=== PATIENT | male | born 1945 | race Caucasian/White ===

== ENCOUNTER → 2016-09-21 | Outpatient (REF) | payer MEDICARE, OTHER ==
[2016-09-21 11:56] LABS: MEAN CORPUSCULAR HEMOGLOBIN 31.7 pg (27.0-33.0); MEAN CORPUSCULAR HGB CONC 33.6 g/dl (32.0-36.5); MEAN CORPUSCULAR VOLUME 94.4 fl (80.0-96.0); WHITE BLOOD COUNT 5.9 K/mm3 (4.0-10.0)
[2016-09-21 13:08] LABS: ALBUMIN/GLOBULIN RATIO 1.25 (1.00-1.93); BILIRUBIN,TOTAL 0.6 MG/DL (0.2-1.0); CALCIUM LEVEL 8.7 MG/DL (8.8-10.2); CREATININE FOR GFR 1.31 MG/DL (0.70-1.30); GLOMERULAR FILTRATION RATE 57.6 (>42); POTASSIUM SERUM 4.7 MEQ/L (3.5-5.1); TOTAL PROTEIN 7.2 GM/DL (6.4-8.2)
== END ==
LOC: M SFHCPLAZ 09:34
PROVIDERS: ATTEND Internal Medicine
DX: Z51.81 Encounter for therapeutic drug level monitoring (principal); Z79.899 Other long term (current) drug therapy; E78.00 Pure hypercholesterolemia, unspecified; R73.01 Impaired fasting glucose

== ENCOUNTER 2017-01-30 10:46 | Outpatient (RCR) | payer MEDICARE, OTHER | END 2017-02-02 | LOC: M CR 10:46 | PROVIDERS: ATTEND Internal Medicine Cardiovascular Disease | DX: Z51.89 Encounter for other specified aftercare (principal); I25.10 Atherosclerotic heart disease of native coronary artery without angina pectoris; Z98.61 Coronary angioplasty status ==

== ENCOUNTER → 2017-09-04 | Outpatient (REF) | payer MEDICARE, OTHER ==
[2017-09-04 12:18] LABS: HEMATOCRIT 44.9 % (42.0-52.0); HEMOGLOBIN 14.8 g/dl (13.5-17.5); MEAN CORPUSCULAR HEMOGLOBIN 30.9 pg (27.0-33.0); MEAN CORPUSCULAR VOLUME 93.7 fl (80.0-96.0); PLATELET COUNT, AUTOMATED 201 10^3/uL (150-450); RED BLOOD COUNT 4.79 10^6/uL (4.30-6.10); RED CELL DISTRIBUTION WIDTH 12.9 % (11.5-14.5); WHITE BLOOD COUNT 6.6 10^3/uL (4.0-10.0)
[2017-09-04 12:52] LABS: ALBUMIN/GLOBULIN RATIO 1.21 (1.00-1.93); ALKALINE PHOSPHATASE 91 U/L (45-117); ALT/SGPT 34 U/L (12-78); ANION GAP 7 MEQ/L (8-16); AST/SGOT 16 U/L (7-37); BILIRUBIN,TOTAL 0.5 MG/DL (0.2-1.0); BLOOD UREA NITROGEN 23 MG/DL (7-18); CALCIUM LEVEL 8.9 MG/DL (8.8-10.2); CARBON DIOXIDE LEVEL 27 MEQ/L (21-32); CHLORIDE LEVEL 107 MEQ/L (98-107); CHOLESTEROL LEVEL 148 MG/DL (<200); CHOLESTEROL RISK RATIO 2.596 (<5); CREATININE FOR GFR 1.29 MG/DL (0.70-1.30); GLOMERULAR FILTRATION RATE 58.5 (>42); GLUCOSE, FASTING 105 MG/DL (70-100); HDL CHOLESTEROL 57 MG/DL (>40); LDL CHOLESTEROL 63.2 MG/DL (<100); MAGNESIUM LEVEL 2.4 MG/DL (1.8-2.4); NON-HDL-C 91 MG/DL; POTASSIUM SERUM 5.1 MEQ/L (3.5-5.1); SODIUM LEVEL 141 MEQ/L (136-145); TOTAL PROTEIN 7.3 GM/DL (6.4-8.2); TRIGLYCERIDES LEVEL 139 MG/DL (<150)
[2017-09-04 14:36] LABS: ESTIMATED AVERAGE GLUCOSE 111 MG/DL (60-110); HEMOGLOBIN A1c 5.5 %
== END ==
LOC: M SFHCPLAZ 07:52
DX: R73.01 Impaired fasting glucose (principal); K21.9 Gastro-esophageal reflux disease without esophagitis; I10 Essential (primary) hypertension; E78.00 Pure hypercholesterolemia, unspecified
CPT/HCPCS: 83735

== ENCOUNTER → 2018-09-12 | Outpatient (CLI) | payer MEDICARE, OTHER ==
[2018-09-12 12:53] LABS: HEMATOCRIT 46.3 % (42.0-52.0); HEMOGLOBIN 15.3 g/dl (13.5-17.5); MEAN CORPUSCULAR HEMOGLOBIN 31.7 pg (27.0-33.0); MEAN CORPUSCULAR VOLUME 96.1 fl (80.0-96.0); PLATELET COUNT, AUTOMATED 200 10^3/uL (150-450); RED BLOOD COUNT 4.82 10^6/uL (4.30-6.10); WHITE BLOOD COUNT 7.9 10^3/uL (4.0-10.0)
[2018-09-12 13:14] LABS: ALBUMIN 3.8 GM/DL (3.2-5.2); ALT/SGPT 34 U/L (12-78); BILIRUBIN,TOTAL 0.5 MG/DL (0.2-1.0); BLOOD UREA NITROGEN 24 MG/DL (7-18); CALCIUM LEVEL 9.1 MG/DL (8.8-10.2); CARBON DIOXIDE LEVEL 30 MEQ/L (21-32); CHLORIDE LEVEL 103 MEQ/L (98-107); CREATININE FOR GFR 1.23 MG/DL (0.70-1.30); GLOMERULAR FILTRATION RATE > 60.0 (>42); GLUCOSE, FASTING 119 MG/DL (70-100); MAGNESIUM LEVEL 2.4 MG/DL (1.8-2.4); POTASSIUM SERUM 4.8 MEQ/L (3.5-5.1); SODIUM LEVEL 136 MEQ/L (136-145); TOTAL PROTEIN 7.4 GM/DL (6.4-8.2)
[2018-09-12 14:00] LABS: HIV 1&2 SCREEN CENTAUR NEGATIVE (NEGATIVE)
[2018-09-12 14:35] LABS: HEPATITIS C VIRUS ABY INDEX < 0.0 INDEX (<0.8)
== END ==
LOC: M WUC 08:04
PROVIDERS: ATTEND Internal Medicine
DX: Z11.4 Encounter for screening for human immunodeficiency virus [HIV] (principal); Z11.59 Encounter for screening for other viral diseases; I25.10 Atherosclerotic heart disease of native coronary artery without angina pectoris; I10 Essential (primary) hypertension; R73.01 Impaired fasting glucose

== ENCOUNTER → 2018-12-29 | Outpatient (CLI) | payer MEDICARE, OTHER ==
[~2018-12-29] MED LIST: AMLO25TA PO; ASPI-161 PO; ASPI81CH33 PO; BRIL90TA PO; CRES20TA2 PO; ESOM1CAP5 PO; FINA5TAB2 PO; ISOS20TA PO; ISOS30TA4 PO; L-AR1000 PO; METO1TAB7 PO; METO50TA7 PO; NITR0.4S14 SL; RAMI1CAP24 PO; RAMI1CAP26 PO; RANO500T7 PO; VITA-122 PO; VITMTA PO
--- NOTE | 2018-12-30 12:21 | REP ---
Bilateral lower extremity arterial Doppler ultrasound: Right lower extremity: The brachial peak flow velocity: 100 for a millimeters of mercury. Dorsalis pedis peak flow velocity: Not present. JUNIOR ELECTRICAL ENGINEER peak velocity: 110 mmHg. ISADORA: 0.8 Peak Systolic Phasicity Velocity STATION MECHANIC HELPER 83.2 biphasic Profunda 245.0 biphasic SFA prox 223.0 biphasic SFA mid 65.3 biphasic SFA dist 59.3 by three Pop 39.2. monophasic JANA prox 18.4 monophasic Tib/P tr 24.8 monophasic JUNIOR ELECTRICAL ENGINEER pr 39.7 monophasic JUNIOR ELECTRICAL ENGINEER dst 32.1 biphasic JANA dst 14.8 monophasic Left lower extremity: Brachial peak flow velocity: 130 mmHg. Dorsalis pedis: Reversal of flow JUNIOR ELECTRICAL ENGINEER: 112 mmHg. ISADORA: 0.9. There is stenosis of the right proximal superficial femoral artery and the right profunda femoral artery. There is monophasic flow from the right popliteal artery to the right ankle. On the left. There is flow reversal in the anterior tibial artery and dorsalis penis. There is moderate atheromatous plaque bilaterally. Electronically Signed by Hong Jaimes MD 12/29/2018 12:56 P
== END ==
LOC: M RAD 10:56
PROVIDERS: ATTEND Surgery Vascular Surgery
DX: I70.213 Atherosclerosis of native arteries of extremities with intermittent claudication, bilateral legs (principal)

== ENCOUNTER → 2019-01-07 | Outpatient (CLI) | payer MEDICARE, OTHER ==
[2019-01-07 11:53] LABS: HEMATOCRIT 44.2 % (42.0-52.0); HEMOGLOBIN 14.9 g/dl (13.5-17.5); MEAN CORPUSCULAR HGB CONC 33.7 g/dl (32.0-36.5); MEAN CORPUSCULAR VOLUME 94.8 fl (80.0-96.0); PLATELET COUNT, AUTOMATED 201 10^3/uL (150-450); RED BLOOD COUNT 4.66 10^6/uL (4.30-6.10); WHITE BLOOD COUNT 6.1 10^3/uL (4.0-10.0)
[2019-01-07 12:22] LABS: CALCIUM LEVEL 9.4 MG/DL (8.8-10.2); CREATININE FOR GFR 1.29 MG/DL (0.70-1.30); GLOMERULAR FILTRATION RATE 58.3 (>42)
== END ==
LOC: M LAB 11:26
PROVIDERS: ATTEND Physician Assistant
DX: I70.213 Atherosclerosis of native arteries of extremities with intermittent claudication, bilateral legs (principal)

== ENCOUNTER 2019-01-14 20:55 | Observation (INO) | payer MEDICARE, OTHER ==
[~2019-01-14] VITALS: Ht 167.6 cm; Wt 67.5 kg
[2019-01-14] MEDS ORDERED: AMLO25TA PO (21:23)
[2019-01-14] MEDS ORDERED: RAMI1CAP26 PO (21:23)
[2019-01-14] MEDS ORDERED: ASPI81CH33 PO (21:23)
[2019-01-14] MEDS ORDERED: BRIL90TA PO (21:23)
[2019-01-14] MEDS ORDERED: FINA5TAB2 PO (21:23)
[2019-01-14] MEDS ORDERED: ISOS20TA PO (21:23)
[2019-01-14] MEDS ORDERED: NITR0.4S14 SL (21:23)
[2019-01-14] MEDS ORDERED: ESOM1CAP5 PO (21:23)
[2019-01-14] MEDS ORDERED: METO1TAB7 PO (21:23)
[2019-01-14] MEDS ORDERED: RANO500T7 PO (21:23)
[2019-01-14] MEDS ORDERED: CRES20TA2 PO (21:23)
[2019-01-14 21:54] LABS: BASO % 0.6 % (0.0-1.0); EOS # 0.1 10^3/uL (0.0-0.5); EOS % 1.3 % (0.0-3.0); HEMATOCRIT 43.9 % (42.0-52.0); HEMOGLOBIN 15.1 g/dl (13.5-17.5); LYMPH # 1.4 10^3/uL (1.5-5.0); LYMPH % 19.2 % (24.0-44.0); MEAN CORPUSCULAR HEMOGLOBIN 31.7 pg (27.0-33.0); MEAN CORPUSCULAR HGB CONC 34.4 g/dl (32.0-36.5); MEAN CORPUSCULAR VOLUME 92.2 fl (80.0-96.0); MONO # 0.8 10^3/uL (0.0-0.8); MONO % 10.9 % (0.0-5.0); NEUTROPHILS # 4.8 10^3/uL (1.5-8.5); NEUTROPHILS % 67.7 % (36.0-66.0); PLATELET COUNT, AUTOMATED 202 10^3/uL (150-450); RED BLOOD COUNT 4.76 10^6/uL (4.30-6.10); WHITE BLOOD COUNT 7.1 10^3/uL (4.0-10.0)
[2019-01-14 22:05] LABS: INR 1.03; PROTHROMBIN TIME 13.2 SECONDS (11.8-14.0)
[2019-01-14 22:06] LABS: PARTIAL THROMBOPLASTIN TIME 27.7 SECONDS (25.0-38.4)
[2019-01-14] MEDS ORDERED: ASPIRIN 81 MG CHEW TABLET PO ONE (22:15)
[2019-01-14 22:28] LABS: ALBUMIN 3.8 GM/DL (3.2-5.2); ALT/SGPT 33 U/L (12-78); BILIRUBIN,DIRECT 0.2 MG/DL (0.0-0.2); BILIRUBIN,TOTAL 0.4 MG/DL (0.2-1.0); BLOOD UREA NITROGEN 24 MG/DL (7-18); CALCIUM LEVEL 9.4 MG/DL (8.8-10.2); CARBON DIOXIDE LEVEL 28 MEQ/L (21-32); CHLORIDE LEVEL 101 MEQ/L (98-107); CK-MB VALUE MASS < 1.0 NG/ML (<3.6); CPK CREATINE PHOSPHOKINASE 49 U/L (39-308); FREE T4 0.94 NG/DL (0.76-1.46); GLUCOSE, FASTING 143 MG/DL (70-100); LIPASE 114 U/L (73-393); MB/CK RELATIVE INDEX 2.04 (< OR =4); SODIUM LEVEL 135 MEQ/L (136-145); TOTAL PROTEIN 7.1 GM/DL (6.4-8.2); TROPONIN I < 0.02 NG/ML (< 0.10)
[2019-01-14] MEDS ORDERED: ASPI-161 PO (23:16)
[2019-01-14] MEDS ORDERED: RAMI1CAP24 PO (23:16)
[2019-01-14] MEDS ORDERED: METO50TA7 PO (23:16)
[2019-01-14] MEDS ORDERED: ISOS30TA4 PO ×2 (23:16)
[2019-01-14] MEDS ORDERED: L-AR1000 PO (23:20)
[2019-01-14] MEDS ORDERED: VITA-122 PO (23:20)
[2019-01-14] MEDS ORDERED: VITMTA PO (23:20)
[2019-01-15] MEDS ORDERED: MOM 30ML SUSPENSION UDC PO PRN
[2019-01-15] MEDS ORDERED: ACETAMINOPHEN TAB 650MG DOSE (2X325MG) PO PRN
[2019-01-15] MEDS ORDERED: MAALOX 30 ML SUSP *UDC PO PRN
[2019-01-15] MEDS: DOCUSATE SODIUM 100 MG CAP PO SCH ×2 (00:24→08:23)
[2019-01-15 00:45] LABS: HEMATOCRIT 41.2 % (42.0-52.0); HEMOGLOBIN 14.4 g/dl (13.5-17.5); MEAN CORPUSCULAR VOLUME 91.6 fl (80.0-96.0); PLATELET COUNT, AUTOMATED 195 10^3/uL (150-450)
[2019-01-15 00:57] LABS: INR 1.03; PROTHROMBIN TIME 13.2 SECONDS (11.8-14.0)
[2019-01-15 01:00] LABS: D-DIMER QUANT 420.32 ng/ml (<500)
[2019-01-15 01:07] LABS: ALBUMIN 3.6 GM/DL (3.2-5.2); BILIRUBIN,TOTAL 0.5 MG/DL (0.2-1.0); CALCIUM LEVEL 8.8 MG/DL (8.8-10.2); CREATININE FOR GFR 1.34 MG/DL (0.70-1.30); GLOMERULAR FILTRATION RATE 55.8 (>42); POTASSIUM SERUM 4.1 MEQ/L (3.5-5.1); TOTAL PROTEIN 6.7 GM/DL (6.4-8.2)
[2019-01-15 05:03] LABS: BASO % 0.5 % (0.0-1.0); EOS # 0.1 10^3/uL (0.0-0.5); EOS % 1.5 % (0.0-3.0); HEMATOCRIT 43.6 % (42.0-52.0); LYMPH # 1.6 10^3/uL (1.5-5.0); LYMPH % 19.9 % (24.0-44.0); MEAN CORPUSCULAR HEMOGLOBIN 31.6 pg (27.0-33.0); MEAN CORPUSCULAR HGB CONC 34.4 g/dl (32.0-36.5); MONO # 0.8 10^3/uL (0.0-0.8); MONO % 10.1 % (0.0-5.0); NEUTROPHILS # 5.3 10^3/uL (1.5-8.5); NEUTROPHILS % 67.6 % (36.0-66.0); PLATELET COUNT, AUTOMATED 207 10^3/uL (150-450); RED BLOOD COUNT 4.74 10^6/uL (4.30-6.10); WHITE BLOOD COUNT 7.8 10^3/uL (4.0-10.0)
[2019-01-15 05:42] LABS: ALBUMIN 3.7 GM/DL (3.2-5.2); ALT/SGPT 33 U/L (12-78); BILIRUBIN,TOTAL 0.5 MG/DL (0.2-1.0); BLOOD UREA NITROGEN 21 MG/DL (7-18); CARBON DIOXIDE LEVEL 25 MEQ/L (21-32); CHLORIDE LEVEL 104 MEQ/L (98-107); CHOLESTEROL LEVEL 137 MG/DL (<200); CREATININE FOR GFR 1.25 MG/DL (0.70-1.30); GLOMERULAR FILTRATION RATE > 60.0 (>42); GLUCOSE, FASTING 98 MG/DL (70-100); HDL CHOLESTEROL 55 MG/DL (>40); LDL CHOLESTEROL 53 MG/DL (<100); MAGNESIUM LEVEL 2.3 MG/DL (1.8-2.4); NON-HDL-C 82 MG/DL; POTASSIUM SERUM 3.7 MEQ/L (3.5-5.1); SODIUM LEVEL 137 MEQ/L (136-145); TOTAL PROTEIN 7.3 GM/DL (6.4-8.2); TRIGLYCERIDES LEVEL 143 MG/DL (<150); TROPONIN I < 0.02 NG/ML (< 0.10)
[2019-01-15 08:00] VITALS: BP 130/62
--- NOTE | 2019-01-15 08:15 | ECGEPIP ---
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
--- NOTE | 2019-01-15 08:19 | ECGEPIP ---
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
[2019-01-15] MEDS ORDERED: NITROGLYCERIN 0.4 MG SUBL TABLET SL PRN (08:45)
--- NOTE | 2019-01-15 08:59 | HPEPDOC ---
General Date of Admission Jan 14, 2019 at 20:56 Date of Service: Jan 14, 2019 Primary Care Physician: Gino Torres Attending Physician: UMU MILLS DO Chief Complaint The patient is a 73-year-old male admitted with a reason for visit of Angina Pectoris. Source: Patient, RN notes reviewed, EMS notes reviewed Exam Limitations: No limitations Timing/Duration: 1-3 hours Associated Symptoms: Chest Pain, Diaphoresis, Nausea History of Present Illness 73 year-old elderly male presents to [facility] ED by way of EMS with his complaining of nausea, diaphoresis accompanied with chest pain which stated this evening. He reports belching, taking a Nitroglycerin tablet Sublingual which both helped to relieve some of his chest pressure discomfort and pain. How ever, the chest pressure increase as well as the pain reports Mr. Velasquez who in turn informed his that he needed to go the the nearest emergency room. He denies vomiting, having diarrhea, losing consciousness, changing in vision during his chest pain episode and he denies those symptoms now. 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 Due to patients co-morbidities, current complaints he will be admitted to Observation unit for ongoing evaluation. Home Medications Scheduled Amlodipine Besylate (Amlodipine Besylate) 2.5 Mg Tablet, 2.5 MG PO QPM, (Reported) AFTER DINNER Arginine HCl (l-Arginine) 1,000 Mg Tablet, 1,000 MG PO DAILY, (Reported) Aspirin (Aspirin EC) 81 Mg Tablet.dr, 81 MG PO DAILY, (Reported) Cholecalciferol (Vitamin D3) (Vitamin D3) 1,000 Unit Tablet, 1,000 UNIT PO DAILY, (Reported) Esomeprazole Magnesium (Esomeprazole Magnesium) 40 Mg Capsule.dr, 40 MG PO QPM, (Reported) AFTER DINNER Finasteride (Finasteride) 5 Mg Tablet, 5 MG PO QPM, (Reported) AFTER DINNER Isosorbide Mononitrate (Isosorbide Mononitrate ER) 30 Mg Tab.er.24h, 45 MG PO DAILY, (Reported) Isosorbide Mononitrate (Isosorbide Mononitrate ER) 30 Mg Tab.er.24h, 30 MG PO QPM, (Reported) AFTER DINNER Metoprolol Tartrate (Metoprolol Tartrate) 50 Mg Tablet, 50 MG PO BID, (Reported) Multivitamins (Thera M Plus Tablet) 1 Each Tablet, 1 TAB PO DAILY, (Reported) Ramipril (Ramipril) 5 Mg Capsule, 5 MG PO DAILY, (Reported) Ranolazine (Ranexa) 500 Mg Tab.er.12h, 500 MG PO BID, (Reported) Rosuvastatin Calcium (Crestor) 20 Mg Tablet, 20 MG PO QPM, (Reported) AFTER DINNER Ticagrelor Base (Brilinta) 90 Mg Tablet, 90 MG PO BID, (Reported) Scheduled PRN Nitroglycerin (Nitroglycerin) 0.4 Mg Tab.subl, 0.4 MG SL NITRO PRN for CHEST PAIN, (Reported) Allergies Coded Allergies: No Known Allergies (Verified , 09/17/04) Past Medical History Medical History Myocardial Infarction, CAD with CABG x2 with stents x15, Angina Pectoris, Dyslipidemia, Essential Hypertension, GERD Surgical History CABGx2 with 19 stents ( 5 stents placed 09/21), Partial Lumbar discectomy Family History Significant Family History: No pertinent family hx Social History * Smoker: former Smoker Alcohol: occationally Drugs: denies Recent Travel/Sick Contacts: Denies: Recent travel, Recent sick contacts Psychosocial History: No pertinent psych hx A-FIB/CHADSVASC A-FIB History Current/History of A-Fib/PAF?: No Review of Systems Constitutional: Denies: Chills, Fever, Malaise, Night Sweats, Weakness, Fatigue, Weight Loss, Lethargy, Other Eyes: Reports: Pain (chest only with movement) ENT: Denies: Head Aches, Ear Pain, Dysphagia, Sinus Congestion, Post Nasal Drip, Sore Throat, Epistaxis, Other Symptoms Skin: Denies: Rash, Lesions, Jaundice, Bruising, Itching, Dry, Breakdown, Nail Changes, Other Pulmonary: Denies: Dyspnea, Cough, Pleuritic Chest Pain, Other Symptoms Cardiovascular: Reports: Chest Pain (only with exertion like walking) Gastrointestinal: Denies: Nausea, Vomiting, Abdominal Pain, Diarrhea, Constipation, Melena, Hematochezia, Other Symptoms Genitourinary: Denies: Dysuria, Frequency, Incontinence, Hematuria, Retention, Other Symptoms Hematologic: Denies: Bruising, Bleeding Excessively, Petecchia, Purpura, Enlarged Lymph Nodes, Other Hematologic Endocrine: Denies: Polydipsia, Polyphagia, Polyuria, Heat Intolerance, Cold Intolerance, Other Endocrine Sx Musculoskeletal: Reports: Back Pain (comes and goes) Neurological: Denies: Weakness, Numbness, Incoordination, Change in speech, Confusion, Seizures, Other Symptoms Psych: Reports: Mood Normal Physical Examination General Exam: Positive: Alert, Cooperative, No Acute Distress Eye Exam: Positive: PERRLA, Conjunctiva & lids normal, Sclera icteric ENT Exam: Positive: Atraumatic, Mucous membr. moist/pink, Pharynx Normal, Tongue Midline, Nares Patent, Ext Auditory Canal Nml Neck Exam: Positive: Supple, +2 carotid pulse wo bruit, Lymphadenopathy Chest Exam: Positive: Clear to auscultation, Normal air movement Heart Exam: Positive: Bradycardic, Normal S1, Normal S2 Telemetry: Positive: No significant arrhythmia, Bradycardia Abdomen Exam: Positive: Normal bowel sounds, Soft Extremity Exam: Positive: Normal pulses Skin Exam: Positive: Nl turgor and temperature Neuro Exam: Positive: Normal Speech, Cranial Nerves 3-12 NL Psych Exam: Positive: Mental status NL, Mood NL Other physical findings EKG: Sinus Bradycardia with incomplete Right Bundle Branch Block. Vent rate 50, WI interval 163, QRS duration 99, QT/QTc 468/442, PRT axis 35 10 78. Vital Signs Vital Signs Date Time Temp Pulse Resp B/P (MAP) Pulse Ox O2 Delivery O2 Flow Rate FiO2 01/14/19 23:15 51 18 139/66 (90) 96 Room Air 01/14/19 20:56 97.6 Laboratory Data Labs 24H Laboratory Tests 2 01/14/19 21:43: Immature Granulocyte % (Auto) 0.3, White Blood Count 7.1, Red Blood Count 4.76, Hemoglobin 15.1, Hematocrit 43.9, Mean Corpuscular Volume 92.2, Mean Corpuscular Hemoglobin 31.7, Mean Corpuscular Hemoglobin Concent 34.4, Red Cell Distribution Width 12.8, Platelet Count 202, Neutrophils (%) (Auto) 67.7H, Lymphocytes (%) (Auto) 19.2L, Monocytes (%) (Auto) 10.9H, Eosinophils (%) (Auto) 1.3, Basophils (%) (Auto) 0.6, Neutrophils # (Auto) 4.8, Lymphocytes # (Auto) 1.4L, Monocytes # (Auto) 0.8, Eosinophils # (Auto) 0.1, Basophils # (Auto) 0.0, Nucleated Red Blood Cells % (auto) 0.0, Prothrombin Time 13.2, Prothromb Time International Ratio 1.03, Activated Partial Thromboplast Time 27.7, Anion Gap 6L, Glomerular Filtration Rate 53.0, Calcium Level 9.4, Aspartate Amino Transf (AST/SGOT) 15, Alanine Aminotransferase (ALT/SGPT) 33, Alkaline Phosphatase 84, Total Bilirubin 0.4, Direct Bilirubin 0.2, Total Creatine Kinase 49, Creatine Kinase MB < 1.0, Creatine Kinase MB Relative Index 2.04, Troponin I < 0.02, Total Protein 7.1, Albumin 3.8, Albumin/Globulin Ratio 1.15, Lipase 114, Thyroid Stimulating Hormone (TSH) 3.020, Free Thyroxine 0.94 CBC/BMP Laboratory Tests 01/14/19 21:43 Red Blood Count 4.76, Mean Corpuscular Volume 92.2, Mean Corpuscular Hemoglobin 31.7, Mean Corpuscular Hemoglobin Concent 34.4, Red Cell Distribution Width 12.8, Neutrophils (%) (Auto) 67.7 H, Lymphocytes (%) (Auto) 19.2 L, Monocytes (%) (Auto) 10.9 H, Eosinophils (%) (Auto) 1.3, Basophils (%) (Auto) 0.6, Neutrophils # (Auto) 4.8, Lymphocytes # (Auto) 1.4 L, Monocytes # (Auto) 0.8, Eosinophils # (Auto) 0.1, Basophils # (Auto) 0.0 Assessment/Plan 73 year-old elderly male presents to [facility] ED by way of EMS with his complaining of nausea, diaphoresis accompanied with chest pain which stated this evening. He reports belching, taking a Nitroglycerin tablet Sublingual which both helped to relieve some of his chest pressure discomfort and pain. Nausea/Sweating: Differential DX: Angina Pectoris: EKG, remote continuos pulse oximetry, Chest AP/Lat, Lactic Acid, Mag, Phos. 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 CK-MB Trop with trending Trops Continue Brilinta GERD-Chronic Hold Esomeprazole 40 mg daily until discharged Start Protonix DR 40 mg daily while in hospital setting Chronic Back Pain-Chronic Lidocaine Patch Luis F Hartmann rub sparingly Prognosis: Fair DVT Prophylaxis: Brilinta, Bilateral SCDs Discharge: Pending Problems (1) Angina pectoris Permanent Comment: Last Edited By: GEO Arnold on Jan 15, 2019 08:24 Status: Acute Response to Treatment: Worse Discussed With: Patient Problem Specific Plan: Consult Specialist, Monitor Clinically, Repeat Labs Plan / VTE VTE Prophylaxis Ordered?: Yes VTE Exclusion Mechanical Proph: Adria Lower Ex DVT VTE Exclusion Pharmacological: Other (Patient on Brilinta bid) Plan IVF: Initiate Diet: Advance Activity: Advance Diagnostics: Check Labs, Repeat Labs in AM, EKG Advanced Directives: Health Care Proxy (HCP) (Mrs. Nila Velasquez-) JAVIER TOMLINSON Jan 15, 2019 00:51
[2019-01-15] MEDS ORDERED: VITAMIN D 1,000 INTERNATIONAL UNITS TABLET PO SCH (09:00)
[2019-01-15] MEDS ORDERED: MULTIVITAMINS/MINERALS THERAP 1 TAB PO SCH (09:00)
[2019-01-15] MEDS ORDERED: METOPROLOL TART 50 MG TAB PO SCH (09:00)
[2019-01-15] MEDS ORDERED: RANOLAZINE 500 MG ER TAB PO SCH (09:00)
[2019-01-15] MEDS ORDERED: PANTOPRAZOLE 40MG TAB (PROTONIX) PO SCH (09:00)
[2019-01-15] MEDS ORDERED: ASPIRIN 81 MG CHEW TABLET PO SCH (09:00)
[2019-01-15] MEDS ORDERED: ISOSORBIDE MON. (IMDUR) 30 MG XR TAB PO SCH ×2 (09:00→21:00)
[2019-01-15] MEDS ORDERED: ASPIRIN 81 MG ENTERIC TAB PO SCH (09:00)
[2019-01-15] MEDS ORDERED: NS 1,000 ML IV SCH (09:00)
[2019-01-15] MEDS ORDERED: RAMIPRIL 5 MG CAP PO SCH (09:00)
[2019-01-15] MEDS ORDERED: TICAGRELOR 90 MG TABLET (BRILINTA) PO SCH (09:00)
[2019-01-15 09:15] LABS: BASO % 0.6 % (0.0-1.0); EOS # 0.1 10^3/uL (0.0-0.5); EOS % 1.2 % (0.0-3.0); HEMATOCRIT 42.6 % (42.0-52.0); HEMOGLOBIN 14.7 g/dl (13.5-17.5); LYMPH # 1.1 10^3/uL (1.5-5.0); LYMPH % 16.5 % (24.0-44.0); MEAN CORPUSCULAR HEMOGLOBIN 31.7 pg (27.0-33.0); MEAN CORPUSCULAR HGB CONC 34.5 g/dl (32.0-36.5); MONO # 0.6 10^3/uL (0.0-0.8); MONO % 8.5 % (0.0-5.0); NEUTROPHILS # 5.1 10^3/uL (1.5-8.5); NEUTROPHILS % 72.8 % (36.0-66.0); PLATELET COUNT, AUTOMATED 204 10^3/uL (150-450); RED BLOOD COUNT 4.63 10^6/uL (4.30-6.10); WHITE BLOOD COUNT 6.9 10^3/uL (4.0-10.0)
[2019-01-15] MEDS ORDERED: PILL CUTTER 1 EACH XX PRN (09:15)
--- NOTE | 2019-01-15 09:23 | REP ---
CHEST X-RAY: Two views. HISTORY: Chest pain. COMPARISON CHEST X-RAY: May 01, 2006. FINDINGS: The patient is status post prior median sternotomy and there are multiple coronary stents visible overlying the heart. Lungs are well inflated and clear. Heart size is normal. Pulmonary vasculature is not increased. Pleural angles are sharp. The findings are unchanged. IMPRESSION: No active disease status post median sternotomy and multiple coronary artery stent placements. Electronically Signed by Yovani Ward MD 01/15/2019 12:50 P
[2019-01-15 09:36] VITALS: BP 130/62
[2019-01-15 09:48] LABS: ALBUMIN 3.7 GM/DL (3.2-5.2); ALT/SGPT 32 U/L (12-78); BILIRUBIN,TOTAL 0.6 MG/DL (0.2-1.0); BLOOD UREA NITROGEN 21 MG/DL (7-18); CALCIUM LEVEL 8.8 MG/DL (8.8-10.2); CARBON DIOXIDE LEVEL 25 MEQ/L (21-32); CHLORIDE LEVEL 105 MEQ/L (98-107); CHOLESTEROL LEVEL 141 MG/DL (<200); CREATININE FOR GFR 1.22 MG/DL (0.70-1.30); GLOMERULAR FILTRATION RATE > 60.0 (>42); GLUCOSE, FASTING 148 MG/DL (70-100); HDL CHOLESTEROL 60 MG/DL (>40); LDL CHOLESTEROL 55 MG/DL (<100); MAGNESIUM LEVEL 2.2 MG/DL (1.8-2.4); NON-HDL-C 81 MG/DL; NT-PRO BNP 156 PG/ML (<125); PHOSPHORUS LEVEL 3.1 MG/DL (2.5-4.9); SODIUM LEVEL 138 MEQ/L (136-145); TOTAL PROTEIN 6.8 GM/DL (6.4-8.2); TRIGLYCERIDES LEVEL 132 MG/DL (<150)
[2019-01-15 12:00] VITALS: BP 110/57
[2019-01-15 16:00] VITALS: BP 111/58
[2019-01-15] MEDS ORDERED: ROSUVASTATIN 10 MG TAB (CRESTOR) PO SCH (21:00)
[2019-01-15] MEDS ORDERED: FINASTERIDE 5 MG TAB PO SCH (21:00)
== END 2019-01-15 17:04 | disposition home or self-care (01) ==
LOC: M ED 20:55 → M ED INP 20:56 → M PCU 01-15 04:15
PROVIDERS: ADMIT Internal Medicine; ATTEND Internal Medicine
DX: I20.9 Angina pectoris, unspecified (principal); I50.9 Heart failure, unspecified; I25.2 Old myocardial infarction; I11.9 Hypertensive heart disease without heart failure; K21.9 Gastro-esophageal reflux disease without esophagitis; Z98.61 Coronary angioplasty status; Z95.1 Presence of aortocoronary bypass graft; E78.49 Other hyperlipidemia; Z79.82 Long term (current) use of aspirin; Z79.899 Other long term (current) drug therapy; Z79.02 Long term (current) use of antithrombotics/antiplatelets; Z87.891 Personal history of nicotine dependence; N18.3 Chronic kidney disease, stage 3 (moderate); Z12.11 Encounter for screening for malignant neoplasm of colon
CPT/HCPCS: 36415; 36600; 71046; 80048; 80053; 80061; 80076; 81001; 82270; 82550; 82553; 82803; 83605; 83690; 83735; 83880; 84100; 84439; 84443; 84484; 85025; 85027; 85379; 85610; 85730; 93005; 93041; 94760; 99285; G0378

== ENCOUNTER → 2019-08-12 | Outpatient (CLI) | payer MEDICARE, OTHER ==
[2019-08-12 19:48] LABS: BASO # 0.1 10^3/uL (0.0-0.2); BASO % 0.7 % (0.0-1.0); EOS # 0.1 10^3/uL (0.0-0.5); EOS % 1.8 % (0.0-3.0); HEMOGLOBIN 15.5 g/dl (13.5-17.5); LYMPH % 29.3 % (24.0-44.0); MEAN CORPUSCULAR HEMOGLOBIN 31.6 pg (27.0-33.0); MEAN CORPUSCULAR HGB CONC 33.7 g/dl (32.0-36.5); MEAN CORPUSCULAR VOLUME 93.9 fl (80.0-96.0); MONO # 0.8 10^3/uL (0.0-0.8); MONO % 11.9 % (0.0-5.0); NEUTROPHILS # 3.8 10^3/uL (1.5-8.5); PLATELET COUNT, AUTOMATED 237 10^3/uL (150-450); WHITE BLOOD COUNT 6.8 10^3/uL (4.0-10.0)
[2019-08-12 19:57] LABS: BILIRUBIN,TOTAL 0.4 MG/DL (0.2-1.0); CALCIUM LEVEL 9.5 MG/DL (8.8-10.2); CREATININE FOR GFR 1.32 MG/DL (0.70-1.30); GLOMERULAR FILTRATION RATE 56.8 (>42); POTASSIUM SERUM 4.7 MEQ/L (3.5-5.1); TOTAL PROTEIN 7.4 GM/DL (6.4-8.2)
== END ==
LOC: M WUC 17:22
PROVIDERS: ATTEND Physician Assistant
DX: I25.10 Atherosclerotic heart disease of native coronary artery without angina pectoris (principal)

== ENCOUNTER → 2019-08-17 | Outpatient (CLI) | payer MEDICARE, OTHER ==
[2019-08-17 13:05] LABS: CREATININE FOR GFR 1.27 MG/DL (0.70-1.30); GLOMERULAR FILTRATION RATE 59.2 (>42)
== END ==
LOC: M WUC 09:33
PROVIDERS: ATTEND Physician Assistant
DX: I25.10 Atherosclerotic heart disease of native coronary artery without angina pectoris (principal); Z79.82 Long term (current) use of aspirin

== ENCOUNTER → 2020-02-09 | Outpatient (CLI) | payer MEDICARE, OTHER ==
[2020-02-09 10:08] LABS: HEMATOCRIT 46.3 % (42.0-52.0); HEMOGLOBIN 15.1 g/dl (13.5-17.5); MEAN CORPUSCULAR HEMOGLOBIN 31.4 pg (27.0-33.0); MEAN CORPUSCULAR HGB CONC 32.6 g/dl (32.0-36.5); MEAN CORPUSCULAR VOLUME 96.3 fl (80.0-96.0); PLATELET COUNT, AUTOMATED 211 10^3/uL (150-450); RED BLOOD COUNT 4.81 10^6/uL (4.30-6.10); WHITE BLOOD COUNT 6.7 10^3/uL (4.0-10.0)
[2020-02-09 10:42] LABS: HEMOGLOBIN A1c 5.4 %
[2020-02-09 10:48] LABS: ALBUMIN 3.8 GM/DL (3.2-5.2); BILIRUBIN,TOTAL 0.5 MG/DL (0.2-1.0); CALCIUM LEVEL 9.3 MG/DL (8.8-10.2); CHOLESTEROL RISK RATIO 3.283 (<5); CREATININE FOR GFR 1.27 MG/DL (0.70-1.30); GLOMERULAR FILTRATION RATE 59.2 (>42); MAGNESIUM LEVEL 2.3 MG/DL (1.8-2.4); POTASSIUM SERUM 4.8 MEQ/L (3.5-5.1); TOTAL PROTEIN 6.9 GM/DL (6.4-8.2)
[2020-02-09 10:55] LABS: MALB URINE SIEMENS 27.4 MG/L
== END ==
LOC: M WUC 08:20
PROVIDERS: ATTEND Internal Medicine
DX: R73.01 Impaired fasting glucose (principal); N40.0 Benign prostatic hyperplasia without lower urinary tract symptoms; K21.9 Gastro-esophageal reflux disease without esophagitis; E78.00 Pure hypercholesterolemia, unspecified; I10 Essential (primary) hypertension; Z12.5 Encounter for screening for malignant neoplasm of prostate
CPT/HCPCS: 36415; 80053; 80061; 82043; 83036; 83735; 85027; G0103

== ENCOUNTER → 2020-11-23 | Outpatient (CLI) | payer MEDICARE, OTHER ==
[~2020-11-23] MED LIST changes: +ISOS1TAB35 PO; -ISOS30TA4 PO
[2020-11-23 12:24] LABS: HEMOGLOBIN A1c 5.6 %
[2020-11-23 12:32] LABS: BILIRUBIN,TOTAL 0.5 MG/DL (0.2-1.0); CALCIUM LEVEL 8.5 MG/DL (8.8-10.2); CREATININE FOR GFR 1.28 MG/DL (0.70-1.30); GLOMERULAR FILTRATION RATE 58.5 (>42); POTASSIUM SERUM 4.8 MEQ/L (3.5-5.1)
[2020-11-23 12:33] LABS: ALBUMIN 3.7 GM/DL (3.2-5.2); CHOLESTEROL RISK RATIO 3.508 (<5); TOTAL PROTEIN 6.9 GM/DL (6.4-8.2)
== END ==
LOC: M WUC 08:18
PROVIDERS: ATTEND Internal Medicine
DX: R73.01 Impaired fasting glucose (principal); I10 Essential (primary) hypertension

== ENCOUNTER 2021-02-25 14:34 | Emergency (ER) | payer MEDICARE, OTHER ==
[~2021-02-25] VITALS: Ht 165.1 cm; Wt 66.3 kg
--- OUTSIDE RECORDS SUMMARY | 2021-02-25 14:41 | CCD ---
Author Author [facility] Organization [facility] Address Unknown Phone Unavailable Care Team Providers Care Director Inpatient Headache Program Name Role Phone Fons, M Paulina BOOK SHELVER Unavailable Unavailable Fons, M Paulina BOOK SHELVER Unavailable Unavailable Fons, M Paulina BOOK SHELVER Unavailable Unavailable Fons, M Paulina BOOK SHELVER Unavailable Unavailable Fons, M Paulina BOOK SHELVER Unavailable Unavailable Fons, M Paulina BOOK SHELVER Unavailable Unavailable Fons, M Paulina BOOK SHELVER Unavailable Unavailable Fons, M Pualina BOOK SHELVER Unavailable Unavailable Fons, M Paulina BOOK SHELVER Unavailable Unavailable Fons, M Paulina BOOK SHELVER Unavailable Unavailable Fons, M Paulina BOOK SHELVER Unavailable Unavailable Fons, M Paulina BOOK SHELVER Unavailable Unavailable Fons, M Paulina BOOK SHELVER Unavailable Unavailable Fons, M Paulina BOOK SHELVER Unavailable Unavailable Fons, M Paulina BOOK SHELVER Unavailable Unavailable Fons, M Paulina BOOK SHELVER Unavailable Unavailable Fons, M Paulina BOOK SHELVER Unavailable Unavailable Fons, M Paulina BOOK SHELVER Unavailable Unavailable Fons, M Paulina BOOK SHELVER Unavailable Unavailable Fons, M Paulina BOOK SHELVER Unavailable Unavailable Fons, M Paulina BOOK SHELVER Unavailable Unavailable Fons, M Paulina BOOK SHELVER Unavailable Unavailable Fons, M Paulina BOOK SHELVER Unavailable Unavailable Fons, M Paulina BOOK SHELVER Unavailable Unavailable Fons, M Paulina BOOK SHELVER Unavailable Unavailable Fons, M Paulina BOOK SHELVER Unavailable Unavailable Fons, M Paulina BOOK SHELVER Unavailable Unavailable Fons, M Paulina BOOK SHELVER Unavailable Unavailable Fons, M Paulina BOOK SHELVER Unavailable Unavailable Fons, M Paulina BOOK SHELVER Unavailable Unavailable Fons, M Paulina BOOK SHELVER Unavailable Unavailable Fons, M Paulina BOOK SHELVER Unavailable Unavailable Fons, M Paulina BOOK SHELVER Unavailable Unavailable Fons, M Paulina BOOK SHELVER Unavailable Unavailable Fons, M Paulina BOOK SHELVER Unavailable Unavailable Fons, M Paulina BOOK SHELVER Unavailable Unavailable Fons, M Paulina BOOK SHELVER Unavailable Unavailable Fons, M Paulina BOOK SHELVER Unavailable Unavailable Fons, M Paulina BOOK SHELVER Unavailable Unavailable Fons, M Paulina BOOK SHELVER Unavailable Unavailable Fons, M Paulina BOOK SHELVER Unavailable Unavailable Fons, M Paulina BOOK SHELVER Unavailable Unavailable Fons, M Paulina BOOK SHELVER Unavailable Unavailable Fons, M Paulina BOOK SHELVER Unavailable Unavailable Fons, M Paulina BOOK SHELVER Unavailable Unavailable Fons, M Paulina BOOK SHELVER Unavailable Unavailable Fons, M Paulina BOOK SHELVER Unavailable Unavailable Fons, M Paulina BOOK SHELVER Unavailable Unavailable Fons, M Paulina BOOK SHELVER Unavailable Unavailable Fons, M Paulina BOOK SHELVER Unavailable Unavailable Fons, M Paulina BOOK SHELVER Unavailable Unavailable Fons, M Paulina BOOK SHELVER Unavailable Unavailable Fons, M Paulina BOOK SHELVER Unavailable Unavailable Ilan Cunningham MD Unavailable Unavailable Ilan Cunningham MD Unavailable Unavailable Ilan Cunningham MD Unavailable Unavailable Ilan Cunningham MD Unavailable Unavailable Ilan Cunningham MD Unavailable Unavailable Ilan Cunningham MD Unavailable Unavailable Ilan Cunningham MD Unavailable Unavailable Ilan Cunningham MD Unavailable Unavailable Ilan Cunningham MD Unavailable Unavailable Ilan Cunningham MD Unavailable Unavailable Ilan Cunningham MD Unavailable Unavailable Ilan Cunningham MD Unavailable Unavailable Ilan Cunningham MD Unavailable Unavailable Ilan Cunningham MD Unavailable Unavailable Ilan Cunningham MD Unavailable Unavailable Ilan Cunningham MD Unavailable Unavailable Ilan Cunningham MD Unavailable Unavailable Ilan Cunningham MD Unavailable Unavailable Ilan Cunningham MD Unavailable Unavailable Ilna Cunningham MD Unavailable Unavailable Ilan Cunningham MD Unavailable Unavailable Ilan Cunningham MD Unavailable Unavailable Ilan Cunningham MD Unavailable Unavailable Ilan Cunningham MD Unavailable Unavailable Ilan Cunningham MD Unavailable Unavailable Ilan Cunningham MD Unavailable Unavailable Ilan Cunningham MD Unavailable Unavailable Ilan Cunningham MD Unavailable Unavailable Ilan Cunningham MD Unavailable Unavailable Ilan Cunningham MD Unavailable Unavailable Ilan Cunningham MD Unavailable Unavailable Ilan Cunningham MD Unavailable Unavailable Ilan Cunningham MD Unavailable Unavailable Ilan Cunningham MD Unavailable Unavailable Ilan Cunningham MD Unavailable Unavailable Ilan Cunningham MD Unavailable Unavailable Ilan Cunningham MD Unavailable Unavailable Ilan Cunningham MD Unavailable Unavailable Ilan Cunningham MD Unavailable Unavailable Ilan Cunningham MD Unavailable Unavailable Ilan Cunningham MD Unavailable Unavailable Ilan Cunningham MD Unavailable Unavailable Ilan Cunningham MD Unavailable Unavailable Ilan Cunningham MD Unavailable Unavailable Ilan Cunningham MD Unavailable Unavailable Ilan Cunningham MD Unavailable Unavailable Ilan Cunningham MD Unavailable Unavailable Ilan Cunningham MD Unavailable Unavailable Ilan Cunningham MD Unavailable Unavailable Ilan Cunningham MD Unavailable Unavailable Ilan Cunningham MD Unavailable Unavailable Ilan Cunningham MD Unavailable Unavailable Ilan Cunningham MD Unavailable Unavailable Ilan Cunningham MD Unavailable Unavailable Ilan Cunningham MD Unavailable Unavailable Ilan Cunningham MD Unavailable Unavailable Ilan Cunningham MD Unavailable Unavailable Ilan Cunningham MD Unavailable Unavailable Ilan Cunningham MD Unavailable Unavailable Ilan Cunningham MD Unavailable Unavailable Ilan Cunningham MD Unavailable Unavailable Ilan Cunningham MD Unavailable Unavailable Ilan Cunningham MD Unavailable Unavailable Ilan Cunningham MD Unavailable Unavailable Ilan Cunningham MD Unavailable Unavailable Ilan Cunningham MD Unavailable Unavailable Ilan Cunningham MD Unavailable Unavailable Ilan Cunningham MD Unavailable Unavailable Ilan Cunningham MD Unavailable Unavailable Ilan Cunningham MD Unavailable Unavailable Ilan Cunningham MD Unavailable Unavailable Ilan Cunningham MD Unavailable Unavailable Ilan Cunningham MD Unavailable Unavailable Ilan Cunningham MD Unavailable Unavailable Ilan Cunningham MD Unavailable Unavailable Re-disclosure Warning The records that you are about to access may contain information from federally-assisted alcohol or drug abuse programs. If such information is present, then the following federally mandated warning applies: This information has been disclosed to you from records protected by federal confidentiality rules (42 CFR part 2). The federal rules prohibit you from making any further disclosure of this information unless further disclosure is expressly permitted by the written consent of the person to whom it pertains or as otherwise permitted by 42 CFR part 2. A general authorization for the release of medical or other information is NOT sufficient for this purpose. The Federal rules restrict any use of the information to criminally investigate or prosecute any alcohol or drug abuse patient.The records that you are about to access may contain highly sensitive health information, the redisclosure of which is protected by Article 27-F of the [facility] Public Health law. If you continue you may have access to information: Regarding HIV / AIDS; Provided by facilities licensed or operated by the [facility] Office of Mental Health; or Provided by the [facility] Office for People With Developmental Disabilities. If such information is present, then the following [facility] mandated warning applies: This information has been disclosed to you from confidential records which are protected by state law. State law prohibits you from making any further disclosure of this information without the specific written consent of the person to whom it pertains, or as otherwise permitted by law. Any unauthorized further disclosure in violation of state law may result in a fine or half-way sentence or both. A general authorization for the release of medical or other information is NOT sufficient authorization for further disc losure. Allergies and Adverse Reactions Type Description Substance Reaction Status Data Source(s ) Drug Allergy Drug Allergy NKDA MEDENT ([facility]) Family History Family Member Name Family Member Gender Family Member Status Date o f Status Description Data Source(s) Unknown Male Problem MEDENT ([facility]) Encounters Encounter Providers Location Date Indications Data Source(s ) Outpatient Attender: Paulina FITZGERALD.ALEX-[email or web address] 1 12:00:00 AM EDT - 02/07/2021 11:48:26 AM EDT [facility] [place] [address] [facility] [address] 02/01/2021 12:00:00 AM EDT eCW1 ([facility]) Out[place] [address] [facility] [address] 12/07/2020 12:00:00 AM EDT eCW1 ([facility]) Outpatient Attender: Gianfranco Cunningham MD Main Office 11/14/2020 01:30:00 PM EDT PRICE ([facility]) Outpatient Attender: Paulina DOWNING-SJP.ALEX 1 08:14:18 AM EDT - 09/13/2020 09:06:25 AM EDT [facility] Outpatient [address] [facility] [place] [address] 03/01/2020 12:00:00 AM EDT eCW1 ([facility]) Outpatient Attender: Paulina FITZGERALD.ALEX-[email or web address] 0 12:00:00 AM EDT - 02/25/2020 08:47:15 AM EDT [facility] Immunizations Vaccine Date Status Description Data Source(s) VARICELLA-ZOSTER [id number] 10/20/2020 12:00:00 AM EDT completed [facility] influenza, recombinant, quadrIvalent,injectable, prese rvative free 03/01/2020 03:56:00 PM EDT completed eCW1 ([facility]) influenza, recombinant, quadrIvalent,injectable, prese rvative free 03/01/2020 03:56:00 PM EDT completed eCW1 ([facility]) influenza, recombinant, quadrIvalent,injectable, prese rvative free 03/01/2020 03:56:00 PM EDT completed eCW1 ([facility]) Medications Medication Brand Name Start Date Product Form Dose Route Admi nistrative Instructions Pharmacy Instructions Status Indications Reaction Description Data Source(s) 120 mg 01/06/2021 12:00:00 AM EDT tablet extended release 24 hr 30 TAKE ONE TABLET BY MOUTH EVERY DAY TAKE ONE TABLET BY MOUTH EVERY DAY SOLD: 01/06/2021 [facility] cilostazol 50 MG Oral Tablet Cilostazol 11/14/2020 12:00:00 AM EDT ORAL completed MEDENT ([facility]) 24 HR Isosorbide Mononitrate 120 MG Exte nded Release Oral Tablet isosorbide mononitrate (IMDUR) 120 MG 24 hr tablet isosorbide mononitrate (IMDUR) 120 MG 24 hr tablet 09/07/2020 12:00:00 AM EDT aborted TAKE ONE TABLET BY MOUTH DAILY [facility] 12 HR ranolazine 1000 MG Extended Releas e Oral Tablet ranolazine (RANEXA) 1000 MG SR tablet ranolazine (RANEXA) 1000 MG SR tablet 05/31/2020 12:00:00 AM EST active TAKE ONE TABLET BY MOUTH TWO TIMES A DAY [facility] Amlodipine 2.5 MG Oral Tablet amLODIPine (NORVASC) 2.5 MG tablet amLODIPine (NORVASC) 2.5 MG tablet 04/06/2020 12:00:00 AM EST active TAKE ONE TABLET BY MOUTH DAILY [facility] Rosuvastatin calcium 20 MG Oral Tablet rosuvastatin (C RESTOR) 20 MG tablet rosuvastatin (CRESTOR) 20 MG tablet 02/25/2020 12:00:00 AM EDT 20 mg Oral active Take 1 tablet (20 mg total) by m outh daily [facility] 1,000 mg 08/14/2019 12:00:00 AM EDT tablet extended release 12 hr 28 TAKE ONE TABLET BY MOUTH TWICE A DAY TAKE ONE TABLET BY MOUTH TWICE A DAY SOLD: 01/30/2020 [facility] Cholecalciferol 400 UNT Oral Tablet chol ecalciferol (VITAMIN D3) 400 units tablet cholecalciferol (VITAMIN D3) 400 units tablet aborted VITAMIN D3 400 UNIT TABS [facility] Metoprolol Tartrate 25 MG Oral Tablet me toprolol tartrate (LOPRESSOR) 25 MG tablet metoprolol tartrate (LOPRESSOR) 25 MG tablet 50 mg Ora l aborted Take 50 mg by mouth 2 (two) times a day [facility] Insurance Providers Payer name Policy type / Coverage type Policy ID Covered democrat ID Covered democrat's relationship to montalvo Policy [place] Plan Information MEDICARE [id number] Kathy [id number] MEDICARE [id number] xxxxxxxxxxx [id number] [facility] [id number] Kathy [id number] [facility] [id number] xxxxxxxx [id number] ANSI-Medicare Part B [id number] MEDICARE PI PI [facility] PI PI MEDICARE [id number] SP [id number] ANSMedicare Part [id number] ANSI-Commercial [id number] [employer] [id number] SP [id number] [employer] Part B [id number] Self [id number] Medicare [employer] Medicare Primary [id number] Self [id number] MEDICARE [id number] SP [id number] [employer] [id number] SP [id number] [facility] [id number] SP [id number] [facility] [id number] SP [id number] ANSI-Commercial [id number] Problems, Conditions, and Diagnoses Code Display Name Description Problem Type Effective Dates Data Source(s) M79.605 Pain in left leg Pain in left leg Diagnosis 02/07/2021 10 :46:42 AM EDT [facility] M79.604 Pain in right leg Pain in right leg Diagnosis 02/07 10:46:42 AM EDT [facility] 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, unspecif ied Rheumatic mitral valve disease, unspecif Diagnosis 02/07/2021 10:46:42 AM EDT [facility] E78.00 Pure hypercholesterolemia, unspecified P ure hypercholesterolemia, unspecified Diagnosis 02/07/2021 10:46:42 AM EDT [facility] I10 Essential (primary) hypertension Essential (primary) h ypertension Diagnosis 02/07/2021 10:46:42 AM EDT [facility] 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), unspecified, with other forms of angina pectoris Atherosclerosis of coronary artery bypas Diagnosis 02/07/2021 10:46:42 AM EDT [facility] [id number] Coronary arteriosclerosis Coronary arteriosclerosis Pr oblem 11/11/2020 12:00:00 AM EDT [facility] ([facility]) [id number] Pure hypercholesterolemia Pure hypercholesterolemia Pr oblem 11/11/2020 12:00:00 AM EDT [facility] ([facility]) [id number] Essential hypertension Essential hypertension Problem 11/11/2020 12:00:00 AM EDT [facility] ([facility]) [id number] Acute myocardial infarction Acute myocardial infarctio n Problem 11/11/2020 12:00:00 AM EDT [facility] ([facility]) [id number] Benign prostatic hyperplasia without out flow obstruction Benign prostatic hyperplasia without outflow obstruction Problem 01/2021 12:00:00 AM EDT [facility] ([facility]) Surgeries/Procedures Procedure Description Date Indications Data Source(s) ECG ROUTINE ECG W/LEAST 12 LDS W/I&R <td>POCT AMB EKG</td><td>Routine</td><td>09/13/2020 9:23 AM EDT</td><td> 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</td><td> </td> 09/13/2020 09:23:00 AM EDT Atherosclerosis of coronary artery bypas s graft of rincon heart with stable angina pectoris [facility] Atherosclerosis of coronary artery bypas s graft of rincon heart with stable angina pectoris Immunization: Flublok Quadrivalent (18 years & older) 0.5mL IM (Influenza) 03/01/2020 12:00:00 AM EDT eCW1 ([facility]) Results No Information Social History Code Duration Value Status Description Data Source(s ) Smoking 12/15/2020 12:00:00 AM EDT Patient is a former smoker completed Patient is a former smoker [facility] ([facility]) Alcohol intake 09/13/2020 12:00:00 AM EDT Ex-drinker (finding) comp leted Ex- drinker (finding) [facility] Vital Signs ID Date Data Source UNK Name Value Range Interpretation Code Description Data Source(s) Systolic blood pressure 128 mm[Hg] 128 mm[Hg] M EDENT ([facility]) Diastolic blood pressure 70 mm[Hg] 70 mm[Hg] [facility] ([facility]) Heart rate 56 /min 56 /min [facility] ([facility] Body temperature 96.4 [degF] 96.4 [degF] [facility] ([facility]) Body height 66 [in_i] 66 [in_i] [facility] 5'6" Body weight 154.00 [lb_av] 154.00 [lb_av] MEDEN T ([facility]) Body weight 69.854 kg 69.854 kg [facility] ([facility] Body mass index (BMI) [Ratio] 24.9 kg/m2 24.9 k g/m2 [facility] ([facility]) Heart rate 65 /min 65 /min eCW1 ([facility]) Body weight 154.8 [lb_av] 154.8 [lb_av] eCW1 ([facility]) Body height [in_i] eCW1 ([facility]) Body mass index (BMI) [Ratio] 25.76 kg/m2 25.76 kg/m2 eCW1 ([facility]) Respiratory rate 18 /min 18 /min eCW1 ([facility]) Body temperature 97.2 [degF] 97.2 [degF] eCW1 ( [facility]) Systolic blood pressure 140 mm[Hg] 140 mm[Hg] e CW1 ([facility]) Diastolic blood pressure 70 mm[Hg] 70 mm[Hg] eCW1 ([facility]) Diastolic blood pressure 80 mm[Hg] 80 mm[Hg] [facility] ([facility]) Systolic blood pressure 150 mm[Hg] 150 mm[Hg] M EDENT ([facility]) Heart rate 60 /min 60 /min [facility] ([facility] Body temperature 94.9 [degF] 94.9 [degF] [facility] ([facility]) Body height 66 [in_i] 66 [in_i] [facility] ([facility] 5'6" Body weight 153.00 [lb_av] 153.00 [lb_av] MEDEN T ([facility]) Body weight 69.401 kg 69.401 kg [facility] ([facility] Body mass index (BMI) [Ratio] 24.7 kg/m2 24.7 k g/m2 [facility] ([facility]) Systolic blood pressure 144 mm[Hg] 144 mm[Hg] [facility] Diastolic blood pressure 72 mm[Hg] 72 mm[Hg] [facility] Heart rate 59 /min 59 /min [facility] Respiratory rate 18 /min 18 /min [facility] Body weight 70.489 kg 70.489 kg [facility] Body mass index (BMI) [Ratio] 25.08 kg/m2 25.08 kg/m2 [facility] Oxygen saturation in Arterial blood by Pulse oximetry 97 % 97 % [facility] Body weight 155.8 [lb_av] 155.8 [lb_av] eCW1 ([facility]) Heart rate 58 /min 58 /min eCW1 ([facility]) Body height [in_i] eCW1 ([facility]) Respiratory rate 18 /min 18 /min eCW1 ([facility]) Body temperature 97.5 [degF] 97.5 [degF] eCW1 ( [facility]) Systolic blood pressure 124 mm[Hg] 124 mm[Hg] e CW1 ([facility]) Body mass index (BMI) [Ratio] 25.92 kg/m2 25.92 kg/m2 eCW1 ([facility]) Diastolic blood pressure 60 mm[Hg] 60 mm[Hg] eCW1 ([facility]) Patient Treatment Plan of Care Planned Activity Planned Date Details Description Data Source (s) 24 HR Isosorbide Mononitrate 120 MG Extended Release O ral Tablet 09/07/2020 12:00:00 AM EDT [facility] 12 HR ranolazine 1000 MG Extended Release Oral Tablet 05/31/2020 12:00:00 AM EST [facility] Amlodipine 2.5 MG Oral Tablet 04/06/2020 12:00:00 AM EST [facility] Rosuvastatin calcium 20 MG Oral Tablet 02/25/2020 12:00:00 AM EDT [facility] Cholecalciferol 400 UNT Oral Tablet [facility] Metoprolol Tartrate 25 MG Oral Tablet [facility]
--- OUTSIDE RECORDS SUMMARY | 2021-02-25 14:41 | CCD ---
Author Author [facility] Organization [facility] Address Unknown Phone Unavailable Care Team Providers Care Hospice Educator Name Role Phone Gino Torres Unavailable PROBLEMS Type Condition ICD9-CM Code [id number] Code Onset Dates Condition S tatus W/U Status Risk SNOMED Code Notes Problem Other alteration manager (current) drug therapy Z79.899 A ctive confirmed 987723628 Problem Impaired fasting glucose R73.01 Active confirmed [id number] Last FBS was 114 with a hemoglobin A1c of 5.6% in November 2020. Dietary advice provided. No need to add medication to lower glucose and HgbA1c. Problem Enlarged prostate without lower urinary tract symptoms N40.0 Active confirmed [id number] He had fairly signif icant BPH by examination March 2009, but it has improved on Proscar, which was started March 2009. PSA was low in 01/2015 and again in February 2020. Flomax was tried for obstructive symptoms in 02/2015 and was of no benefit. Last prostate exam was in February 2020 Problem Intermittent claudication I73.9 Active confirmed [id number] He has been referred for a vascular evaluation, which was accomplished but interventions were felt to be risky by his media coordinator and have not yet been performed. He was started on Pletal by the vascular surgeon in [place]. 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 He had a cardiac catheterization after an abnormal stress test in 2010 which which showed an occluded SVG to the PDA but good collateralization. He then had another heart attack in December 2016 and had an occluded graft to his right coronary artery and a drug-eluting stent was placed. Ejection fraction was apparently normal. There was fairly diffuse disease elsewhere. Because of angina he had another heart catheterization in September 2018 at which time further stents were placed, with resolution of his angina. He had recurrent angina in January 2019 and he had another cardiac catheterization with a stent placement. I do not have records. He developed angina again in Spring 2019 and another cardiac catheterization r esulted in no intervention but he again had fairly diffuse disease. On Aspirin, statin, CORTNEY inhibitor, beta-og, Effient. Nitrate therapy and Ranexa were added by media coordinator in 09/2015, and amlodipine which was added in September 2018, and he had an intensification of his nitrate and Ranexa therapy in August 2019 after his cardiac catheterization. He has fairly predictable exertional angina. Problem Atherosclerotic heart diseas e of [place] coronary artery without angina pectoris I25.10 Active confirmed [id number] Had M I in 1989, CABG in 1994, multiple percutaneous interventions and repeat CABG 06/12. He had another cardiac catheterization after an abnormal stress test in 2010 which which showed an occluded SVG to the PDA but good collateralization. He then had another heart attack in December 2016 and had an occluded graft to his right coronary artery and a drug-eluting stent was placed. Ejection fraction was apparently normal. There was fairly diffuse disease elsewhere. Because of angina he had another heart catheterization in September 2018 at which time further stents were placed, with resolution of his angina. Most recently he had recurrent angina in January 2019 and another cardiac catheterization was done which revealed occlusion or stenosis of one of his stents. I do not have records. On Aspirin, statin, CORTNEY inhibitor, beta-og, Effient as of January 2019 instead of Brilinta which replaced Plavix as of December 2016, nitrates, Ranexa which added by media coordinator in 09/2015, and amlodipine which was added in September 2018. I wonder he can come off the Ranexa now that he has had another coronary intervention. Problem Essential (primary) hypertension I10 Active conf irmed [id number] On ramipril, metoprolol, isosorbide, and amlodipine. Has no endorgan complications. BP controlled. Problem Gastroesophageal reflux disease without esophagitis K21.9 Active confirmed [id number] Had an EGD in 2002 a 2006. He is on chronic PPI therapy. He was referred for another EGD and saw his lead level designer in February 2017 but because of his antiplatelet therapy, endoscopic evaluation had been deferred to 2017 but further deferred in 2019 because of further coronary stents in September and January 2019. Problem Hypercholesterolemia E78.00 Active confirmed [id number] On Crestor, and is only taking 10 mg daily. Statin dose was increased to 20 mg daily as of 09/2016, 40 mg daily by his media coordinator in late December 2016 but he did not tolerate the 40 mg dose and he was placed back on 20 mg daily; he indicates he only takes 10 mg daily. Stopped Zetia due to bad press in 08/11. As of February 2020 his LDL is 103 and he was advised to try to increase his Crestor dose to at least 20 mg Saturday/Saturday/Saturday, 10 mg the other days of the week, but he is not doing so and his lipids are still suboptimal as of November 2020. He will increase his Crestor to 20 mg daily. ALLERGIES Allergen (clinical drug ingredient) Drug/Non Drug Allergy do cumented on EMR Reaction Allergy Type Onset Date Status mometasone Nasonex([facility] [place][NOTE 2] Code:[address]-04) nose bleed Drug Allergy Active CORTNEY Inhibitors cough Non Drug Allergy Acti ve ENCOUNTERS from 1945 to 2020-12-12 Encounter Location Date Provider Diagnosis [address] [phone] [place] [address] Dec, Gino Melissa Sears (primary) hyperten camilla I10 ; Coronary artery disease involving [place] coronary artery of [place] heart with angina pectoris I25.119 ; Hypercholesterolemia E78.00 ; Impaired fasting glucose R73.01 ; Enlarged prostate without lower urinary tract symptoms N40.0 ; Gastroesophageal reflux disease without esophagitis K21.9 ; Intermittent claudication I73.9 ; Other jail (current) drug therapy Z79.899 and Impacted cerumen of both ears H61.23 IMMUNIZATIONS Vaccine Route Administration Date Status Influenza 18 yrs & older Flublok IM Intramuscular Mar 01, 2020 Administered Influenza (High Dose 65 & up) IM Intramuscular Feb 07, 2015 A dministered Influenza (High Dose 65 & up) IM Intramuscular Feb 06, 2016 A dministered Influenza (High Dose 65 & up) IM Intramuscular Feb 11, 2017 A dministered Influenza 6mo & up Fluzone Unknown Feb 03, 2010 Admin istered Influenza (High Dose 65 & up) Unknown Feb 15, 2014 Ad ministered Influenza (High Dose 65 & up) Unknown Feb 19, 2013 Ad ministered Influenza (High Dose 65 & up) Unknown Feb 13, 2012 Ad ministered Zoster 0.65mL Zostavax Unknown September 23, 2015 Administe red Pneumococcal Adult 0.5mL Pneumovax 23 Unknown Feb 12 12 Administered TDAP Unknown Mar 06, 2010 Administered Pneumococcal 0.5mL Prevnar 13 IM Intramuscular Feb 07, 2015 A dministered Influenza 6mo & up Fluzone Unknown Feb 19, 2011 Admin istered SOCIAL HISTORY Sex Assigned At : Social History Observation Description Sex Assigned At Unknown Audit Question Answer Notes Total Score: 1 Interpretation: Alcohol Education Domestic Violence: Question Answer Notes Status: Sexual Hx: Question Answer Notes Had sex in the last 12 months (vaginal, oral, or anal)? Yes Have you ever had an STD? No with Women only Drug and Alcohol Question Answer Notes Total Score: 0 Interpretation: No problems reported REASON FOR REFERRAL No Information VITAL SIGNS Weight 154.8 lbs Dec, Height 5'5" in Dec, BMI 25.76 kg/m2 Dec, Heart Rate 65 /min Dec, Respiratory Rate 18 /min Dec, Temperature 97.2 degrees Fahrenheit Dec, Oximetry 98% Dec, Blood pressure systolic 140 mm Hg Dec, Blood pressure diastolic 70 mm Hg Dec, MEDICATIONS Medication SIG (Take, Route, Frequency, Duration) Notes Start Da te End Date Status Metoprolol Tartrate 50 mg 1 tablet Orally bid for 90 Active Aspir-81 81 MG 1 tablet Orally Once a day Active Crestor 20 MG 1/2 tablet Orally Once a day Active Thera M Plus - as directed Orally Jan, Active Vitamin D-3 1000 UNIT 1 capsule Orally Once a day Active NexIUM 40 MG 1 capsule Orally Once a day for 90 days Active Co Q10 100 MG 1 cap Orally Daily Act katrin Proscar 5 MG 1 tablet Orally Once a day for 90 Active Effient 10 MG 1 tab Orally Daily prasugrel Jan, A ctive Isosorbide Mononitrate ER 120 MG 1 tab Orally Daily changed at [facility] angio appt Jan, Active Nitrostat 0.4 MG one tablet every five mintue s if symptoms do not resolve Sublingual As needed for 30 days Active Altace 5 MG 1 capsule Orally Once a day for 90 Active amLODIPine Besylate 2.5 MG 1 tablet Orally Once a day Active Cilostazol 50 MG 1 tablet 30 minutes before o r 2 hours after breakfast and dinner Orally Twice a day Active Ranexa 1000 MG 1 tablet Orally Twice a day Active PROCEDURES No Information RESULTS No Results REASON FOR VISIT 10 month follow up with labs to review MEDICAL (GENERAL) HISTORY Type Description Date Medical History Essential (primary) hypertension Medical History Hypercholesterolemia Medical History Atherosclerotic heart diseas e of [place] coronary artery without angina pectoris Medical History Impaired fasting glucose Medical History Enlarged prostate without lower urinary tract symptoms Medical History Gastroesophageal reflux disease without esophagitis Surgical History Lumbar laminectomy 06/13/1969 Surgical History CABG 1994, repeat 06/12--left leg saphenous harvest for second CABG 06/13/2006 Surgical History Colonoscopy 09/2006 Surgical History Heart stent placed-[place] 7 Surgical History Heart cath with 5 stents-[facility] 09/24/2018 Surgical History Cardiac catheterization with stent revision (?clotted?) apparently 01/17/2019 Surgical History Cardiac catheterization, no intervention accomplished 08/14/2019 Hospitalization History [place]-Chest pains, 1 stent daphnie tirso 01/02/2017 Hospitalization History [facility]-Heart Cath wit h 5 stents placed. 09/2018 Goals Section No Information Health Concerns No Information MEDICAL EQUIPMENT No Information MENTAL STATUS No Information FUNCTIONAL STATUS No Information ASSESSMENTS Encounter Date Diagnosis Assessment Notes Treatment Notes Treatm ent Clinical Notes Dec, Essential (primary) hypertension (ICD-10 - I10) On ramipril, metoprolol, isosorbide, and amlodipine. Has no endorgan complications. BP controlled. Dec, Coronary artery disease invo lving [place] coronary artery of [place] heart with angina pectoris (ICD-10 - I25.119) Had MD in 1989, CABG in 1994, multiple percutaneous interventions and repeat CABG 06/12. He had a cardiac catheterization after an abnormal stress test in 2010 which which showed an occluded SVG to the PDA but good collateralization. He then had another heart attack in December 2016 and had an occluded graft to his right coronary artery and a drug-eluting stent was placed. Ejection fraction was apparently normal. There was fairly diffuse disease elsewhere. Because of angina he had another heart catheterization in September 2018 at which time further stents were placed, with resolution of his angina. He had recurrent angina in January 2019 and he had another cardiac catheterization with a stent placement. I do not have records. He developed angina again in Spring 2019 and another cardiac catheterization r esulted in no intervention but he again had fairly diffuse disease. On Aspirin, statin, CORTNEY inhibitor, beta-og, Effient. Nitrate therapy and Ranexa were added by media coordinator in 09/2015, and amlodipine which was added in September 2018, and he had an intensification of his nitrate and Ranexa therapy in August 2019 after his cardiac catheterization. He has fairly predictable exertional angina. Dec, Hypercholesterolemia (ICD-10 - E78.00) O n Crestor, and is only taking 10 mg daily. Statin dose was increased to 20 mg daily as of 09/2016, 40 mg daily by his media coordinator in late December 2016 but he did not tolerate the 40 mg dose and he was placed back on 20 mg daily; he indicates he only takes 10 mg daily. Stopped Zetia due to bad press in 08/11. As of February 2020 his LDL is 103 and he was advised to try to increase his Crestor dose to at least 20 mg Saturday/Saturday/Saturday, 10 mg the other days of the week, but he is not doing so and his lipids are still suboptimal as of November 2020. He will increase his Crestor to 20 mg daily. Dec, Impaired fasting glucose (ICD-10 - R73.0 1) Last FBS was 114 with a hemoglobin A1c of 5.6% in November 2020. Dietary advice provided. No need to add medication to lower glucose and HgbA1c. Dec, Enlarged prostate without lo wer urinary tract symptoms (ICD-10 - N40.0) He had fairly significant BPH by examina tion March 2009, but it has improved on Proscar, which was started March 2009. PSA was low in 01/2015 and again in February 2020. Flomax was tried for obstructive symptoms in 02/2015 and was of no benefit. Last prostate exam was in February 2020 Dec, Gastroesophageal reflux dise ase without esophagitis (ICD-10 - K21.9) Had an EGD in 2002 and 2006. He is on ch ronic PPI therapy. He was referred for another EGD and saw his lead level designer in February 2017 but because of his antiplatelet therapy, endoscopic evaluation had been deferred to 2018 but further deferred in 2018 because of further coronary stents in September and January 2019. Dec, Intermittent claudication (ICD-10 - I73. 9) He has been referred for a vascular evaluation, which was accomplished but interventions were felt to be risky by his media coordinator and have not yet been performed. He was started on Pletal by the vascular surgeon in [place]. Dec, Other jail (current) drug therapy (ICD-10 - Z79.899) Dec, Impacted cerumen of both ears (ICD-10 - H61.23) PLAN OF TREATMENT Future Test Test Name Order Date Comprehensive Metabolic Profile (CMP) [id number] MAGNESIUM LEVEL [id number] LIPID PANEL (CARDIAC RISK) [id number] HEMOGLOBIN A1c [id number] CBC with Differential [id number] PSA SCREENING [id number] Next Appt Details 09/2021 Reason: Provider Name:Gino Melissa, 2021-09-12 09 :30:00 AM, [address] [facility], , [place], [address], Insurance Providers Payer Name Payer Address Payer Phone Insured Name Patient Relati onship to Insured Coverage Start Date Coverage End Date MEDICARE Part A and B [address] [facility] [id number] [phone] ANAHI GARCÍA [facility] [address] [address] [facility] [id number] ANAHI GARCÍA
--- OUTSIDE RECORDS SUMMARY | 2021-02-25 14:41 | CCD | Continuity of Care Document ---
Author Author Benjamin CUNNINGHAM MD Organization Unknown Address [address] [place] [address] Phone [phone] Care Team Providers Care Soda Flaker Name Role Phone Paulina Sun N.P. AUTM [phone] Gino Torres M.D. AUTM [phone] Problems Active Problems Provider Date Benign prostatic hyperplasia without outflow obstruction Onset: 11/11/2020 Acute myocardial infarction Onset: 11/11 Essential hypertension Onset: 11/11/2020 Pure hypercholesterolemia Onset: Coronary arteriosclerosis Onset: 021 Social History Type Date Description Comments Sex Unknown Tobacco Use Start: Unknown End: Unknown Former Cigarette Smo ker 1/2 Pack Daily Tobacco Use Start: Unknown End: Patient is a former smoker Smoking Status Reviewed: 12/15/20 Patient is a former smoker Allergies, Adverse Reactions, Alerts Active Allergies Reaction Severity Comments Date Cilostazol Diarrhea 12/15/2020 Inactive Allergies NKDA 11/14/2020 Medications Active Medications SIG Qnty Indications Ordering Provide r Date Finasteride 5mg Tablets Take One Tablet By Mouth Once A Day Unknown Esomeprazole Magnesium 40mg Capsul es DR Take One Capsule By Mouth Once A Day Unknown Ramipril 5mg Capsules Take One Capsule By Mouth Once A Day Unknown Prasugrel HCL 10mg Tablets Take One Tablet By Mouth Every Day Unknown Amlodipine Besylate 2.5mg Tablets Take One Tablet By Mouth Daily Unknown Rosuvastatin Calcium 20mg Tablets Take One Tablet By Mouth Once A Day Unknown Ranolazine ER 1000mg Tablets ER 12 HR Take One Tablet By Mouth Two Times A Day Unknown Nitroglycerin 0.4mg Tablets Sub Place 1Tab Under The Tongue Every 5Min If Symptoms DO Not Resolve as Needed Unknown Isosorbide Mononitrate ER 120mg Tablets ER 24HR Take One Tablet By Mouth Daily Unknown Metoprolol Tartrate 50mg Tablets Take One Tablet By Mouth Twice A Day Unknown Aspirin Ec Low Dose 81mg Tablets D R take 1 tablet (81 mg total) by mouth daily Unknown Vitamin D3 Complete Tablets qd Unknown History Medications Cilostazol 50mg Tablets take 1 tablet by mouth twice a day 180tabs I70.213 Kenny Cunningham M.D. 11/14/2020 - 12/15/2020 Immunizations Description No Information Available Vital Signs Date Vital Result Comment 12/15/2020 1:34pm BP Systolic Left Arm 128 mmHg BP Diastolic Left Arm 70 mmHg Heart Rate 56 /min Body Temperature 96.4 F Height 66 inches 5'6" Weight 154.00 lb Weight 69.854 kg BMI (Body Mass Index) 24.9 kg/m2 11/14/2020 1:25pm BP Systolic Left Arm 150 mmHg BP Diastolic Left Arm 80 mmHg Heart Rate 60 /min Body Temperature 94.9 F Height 66 inches 5'6" Weight 153.00 lb Weight 69.401 kg BMI (Body Mass Index) 24.7 kg/m2 Results Description No Information Available Procedures Description No Information Available Medical Devices Description No Information Available Encounters Type Date Location Provider Dx Diagnosis Office Visit 11/14/2020 1:30p Main Office Kenny Cunningham M.D. 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 Plan of Treatment Future Appointment(s):* 12/20/2021 2:45 pm - Kenny Cunningham M.D. at Main Office 12/15/2020 - Kenny Cunningham M.D.* * Follow up:* 1 YEAR OV/ Functional Status Description No Information Available Mental Status Description No Information Available Referrals Description No Information Available
--- OUTSIDE RECORDS SUMMARY | 2021-02-25 14:41 | CCD ---
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 Dietary advice provided. No need to add medication to lower glucose and HgbA1c. Problem Enlarged prostate without lower urinary tract symptoms N40.0 Active confirmed [id number] He had fairly signif icant BPH by examination March 2009, but it has improved on Proscar, which was started March 2009. PSA was low in 01/2015 and again in February 2020. Flomax was tried for obstructive symptoms in 02/2015 and was of no benefit. Last prostate exam was in February 2020 Problem Intermittent claudication I73.9 Active confirmed [id number] He has been referred for a vascular evaluation, which was accomplished but interventions were felt to be risky by his industrial therapist and have not yet been performed. He was started on Pletal by the vascular surgeon in [place]. 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 He has fairly predictable exertional angina. Problem Atherosclerotic heart diseas e of tling[place] & [place] coronary artery without angina pectoris I25.10 Active confirmed [id number] Had M I in 1989, CABG in [...] December 2016, nitrates, Ranexa which added by industrial therapist in 09/2015, and amlodipine which was added in September 2018. I wonder he can come off the Ranexa now that he has had another coronary intervention. Problem Essential (primary) hypertension I10 Active conf irmed [id number] On ramipril, metoprolol, isosorbide, and amlodipine. Has no endorgan complications. BP controlled. Problem Gastroesophageal reflux disease without esophagitis K21.9 Active confirmed [id number] Had an EGD in 2002 a 2006. He is on chronic PPI therapy. He was referred for another EGD and saw his heel builder in February 2017 but because of his antiplatelet therapy, endoscopic evaluation had been deferred to 2017 but further deferred in 2019 because of further coronary stents in September and January 2019. Problem Hypercholesterolemia E78.00 Active confirmed [id number] On Crestor, and is only taking 10 mg daily. Statin dose was increased to 20 mg daily as of 09/2016, 40 mg daily by his industrial therapist in late December 2016 but he did [...] Reaction Allergy Type Onset Date Status mometasone Nasonex([facility] Code:[address]-31) nose bleed Drug Allergy Active CORTNEY Inhibitors cough Non Drug Allergy Acti ve ENCOUNTERS from 1945 to 2021-02-02 Encounter Location Date Provider Diagnosis [address] [phone] [place] [address] Jan, [facility] Vaccine Route Administration Date Status Influenza 18 [...] red Pneumococcal Adult 0.5mL Pneumovax 23 Unknown Oct 10, 20 12 Administered TDAP Unknown Mar 06, 2010 [...] REASON FOR REFERRAL No Information VITAL SIGNS No information MEDICATIONS Medication SIG (Take, Route, Frequency, Duration) Notes Start Da te End Date Status Metoprolol Tartrate 50 mg 1 tablet Orally bid for 90 Active Aspir-81 81 MG 1 tablet Orally Once a day Active Vitamin D-3 1000 UNIT 1 capsule Orally Once a day Active Prasugrel HCl 10 MG TAKE ONE TABLET BY MOUTH EVERY DAY for 90 Active Thera M Plus - as directed Orally Jan, Active NexIUM 40 MG 1 capsule Orally Once a day for 90 days Active Co Q10 100 MG 1 cap Orally Daily Act katrin Proscar 5 MG 1 tablet Orally Once a day for 90 Active Rosuvastatin Calcium 20 MG TAKE ONE TABLET BY MOUTH ONCE A DAY for 90 Active Isosorbide Mononitrate ER 120 MG 1 tab Orally Daily changed at [facility] angio appt Jan, Active Nitrostat 0.4 MG [...] Information RESULTS No Results REASON FOR VISIT drug interaction MEDICAL (GENERAL) HISTORY Type Description Date Medical History Essential (primary) hypertension Medical History Hypercholesterolemia Medical History Atherosclerotic heart diseas e of [place] coronary artery without angina pectoris Medical History Impaired fasting glucose Medical History Enlarged prostate without lower urinary tract symptoms Medical History Gastroesophageal reflux disease without esophagitis Surgical History Lumbar laminectomy 06/13/1969 Surgical History CABG 1994, repeat 06/12--left leg saphenous harvest for second CABG 06/13/2006 Surgical History Colonoscopy 09/2006 Surgical History Heart stent placed-[place] [facility] Surgical History Heart cath with 5 stents-[facility] sp[facility] 09/24/2018 Surgical History Cardiac catheterization with stent revision (?clotted?) apparently 01/17/2019 Surgical History Cardiac catheterization, no intervention accomplished 08/14/2019 Hospitalization History [place]-Chest pains, 1 stent daphnie tirso 01/02/2017 Hospitalization History [facility]-Heart Cath wit h 5 stents placed. 09/2018 Goals Section No Information Health Concerns No Information MEDICAL EQUIPMENT No Information MENTAL STATUS No Information FUNCTIONAL STATUS No Information ASSESSMENTS No Information PLAN OF TREATMENT Medication Medication Name Sig Start Date Stop Date Rosuvastatin Calcium 20 MG TAKE ONE TABLET BY MOUTH ONCE A DAY f or 90 Prasugrel HCl 10 MG TAKE ONE TABLET BY MOUTH EVERY DAY for 90 Next Appt Details Provider Name:Gino Torres, 2021-09-12 09 :30:00 AM, [address] [facility], , [place], [address], Insurance Providers Payer Name Payer Address Payer Phone Insured Name Patient Relati onship to Insured Coverage Start Date Coverage End Date [facility] [address] [address] [facility] [phone] ANAHI GARCÍA MEDICARE Part A and B [address] [facility] [address] ANAHI GARCÍA
[2021-02-25 16:20] LABS: BASO % 0.5 % (0.0-1.0); EOS % 0.5 % (0.0-3.0); HEMATOCRIT 47.2 % (42.0-52.0); HEMOGLOBIN 15.6 g/dl (13.5-17.5); LYMPH # 0.7 10^3/uL (1.5-5.0); LYMPH % 17.2 % (24.0-44.0); MEAN CORPUSCULAR HEMOGLOBIN 30.7 pg (27.0-33.0); MEAN CORPUSCULAR HGB CONC 33.1 g/dl (32.0-36.5); MEAN CORPUSCULAR VOLUME 92.9 fl (80.0-96.0); MONO # 0.5 10^3/uL (0.0-0.8); MONO % 12.5 % (2.0-8.0); NEUTROPHILS # 2.8 10^3/uL (1.5-8.5); NEUTROPHILS % 69.1 % (36.0-66.0); PLATELET COUNT, AUTOMATED 150 10^3/uL (150-450); RED BLOOD COUNT 5.08 10^6/uL (4.30-6.10); WHITE BLOOD COUNT 4.1 10^3/uL (4.0-10.0)
--- NOTE | 2021-02-25 16:35 | REP ---
INDICATION: CHEST PAIN. COMPARISON: 01/14/2019 latest prior TECHNIQUE: Portable FINDINGS: The technique utilized in obtaining the radiograph has magnified the cardiac silhouette and accentuated the interstitial markings. The superior mediastinal structures are midline. The cardiac silhouette is unremarkable in size, shape, and position. The diaphragmatic surfaces of the lungs are regular, and the costophrenic angles are clear. The pulmonary huff are clear. The imaged osseous structures are intact. IMPRESSION: There is no acute cardiopulmonary disease. <Electronically signed by Carlos Payton > 02/25/21 [id number]
[2021-02-25 16:48] LABS: ALBUMIN 3.5 GM/DL (3.2-5.2); ALT/SGPT 40 U/L (12-78); BILIRUBIN,DIRECT 0.2 MG/DL (0.0-0.2); BILIRUBIN,TOTAL 0.4 MG/DL (0.2-1.0); BLOOD UREA NITROGEN 20 MG/DL (7-18); CALCIUM LEVEL 8.7 MG/DL (8.8-10.2); CARBON DIOXIDE LEVEL 29 MEQ/L (21-32); CHLORIDE LEVEL 98 MEQ/L (98-107); CK-MB VALUE MASS < 1.0 NG/ML (<3.6); CPK CREATINE PHOSPHOKINASE 74 U/L (39-308); CREATININE FOR GFR 1.33 MG/DL (0.70-1.30); GLUCOSE, FASTING 97 MG/DL (70-100); LIPASE 118 U/L (73-393); MB/CK RELATIVE INDEX 1.35 (< OR =4); POTASSIUM SERUM 4.6 MEQ/L (3.5-5.1); SODIUM LEVEL 134 MEQ/L (136-145); TOTAL PROTEIN 7.1 GM/DL (6.4-8.2); TROPONIN I < 0.02 NG/ML (< 0.10)
--- NOTE | 2021-02-25 18:24 | ECGEPIP ---
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
--- OUTSIDE RECORDS SUMMARY | 2021-02-25 18:37 | CCD ---
Author Author [facility] Organization [facility] Address Unknown Phone Unavailable Care Team Providers Care Primary Teaching Assistant Name Role Phone Fons, M Paulina MUD MIXER HELPER Unavailable Unavailable Fons, M Paulina MUD MIXER HELPER Unavailable Unavailable Fons, M Paulina MUD MIXER HELPER Unavailable Unavailable Fons, M Paulina MUD MIXER HELPER Unavailable Unavailable Fons, M Paulina MUD MIXER HELPER Unavailable Unavailable Fons, M Paulina MUD MIXER HELPER Unavailable Unavailable Fons, M Paulina MUD MIXER HELPER Unavailable Unavailable Fons, M Paulina MUD MIXER HELPER Unavailable Unavailable Fons, M Paulina MUD MIXER HELPER Unavailable Unavailable Fons, M Paulina MUD MIXER HELPER Unavailable Unavailable Fons, M Paulina MUD MIXER HELPER Unavailable Unavailable Fons, M Paulina MUD MIXER HELPER Unavailable Unavailable Fons, M Paulina MUD MIXER HELPER Unavailable Unavailable Fons, M Paulina MUD MIXER HELPER Unavailable Unavailable Fons, M Paulina MUD MIXER HELPER Unavailable Unavailable Fons, M Paulina MUD MIXER HELPER Unavailable Unavailable Fons, M Paulina MUD MIXER HELPER Unavailable Unavailable Fons, M Paulina MUD MIXER HELPER Unavailable Unavailable Fons, M Paulina MUD MIXER HELPER Unavailable Unavailable Fons, M Paulina MUD MIXER HELPER Unavailable Unavailable Fons, M Paulina MUD MIXER HELPER Unavailable Unavailable Fons, M Paulina MUD MIXER HELPER Unavailable Unavailable Fons, M Paulina MUD MIXER HELPER Unavailable Unavailable Fons, M Paulina MUD MIXER HELPER Unavailable Unavailable Fons, M Paulina MUD MIXER HELPER Unavailable Unavailable Fons, M Paulina MUD MIXER HELPER Unavailable Unavailable Fons, M Paulina MUD MIXER HELPER Unavailable Unavailable Fons, M Paulina MUD MIXER HELPER Unavailable Unavailable Fons, M Paulina MUD MIXER HELPER Unavailable Unavailable Fons, M Paulina MUD MIXER HELPER Unavailable Unavailable Fons, M Paulina MUD MIXER HELPER Unavailable Unavailable Fons, M Paulina MUD MIXER HELPER Unavailable Unavailable Fons, M Paulina MUD MIXER HELPER Unavailable Unavailable Fons, M Apulina MUD MIXER HELPER Unavailable Unavailable Fons, M Paulina MUD MIXER HELPER Unavailable Unavailable Fons, M Paulina MUD MIXER HELPER Unavailable Unavailable Fons, M Paulina MUD MIXER HELPER Unavailable Unavailable Fons, M Paulina MUD MIXER HELPER Unavailable Unavailable Fons, M Paulina MUD MIXER HELPER Unavailable Unavailable Fons, M Paulina MUD MIXER HELPER Unavailable Unavailable Fons, M Paulina MUD MIXER HELPER Unavailable Unavailable Fons, M Paulina MUD MIXER HELPER Unavailable Unavailable Fons, M Paulina MUD MIXER HELPER Unavailable Unavailable Fons, M Paulina MUD MIXER HELPER Unavailable Unavailable Fons, M Paulina MUD MIXER HELPER Unavailable Unavailable Fons, M Paulina MUD MIXER HELPER Unavailable Unavailable Fons, M Paulina MUD MIXER HELPER Unavailable Unavailable Fons, M Paulina MUD MIXER HELPER Unavailable Unavailable Fons, M Paulnia MUD MIXER HELPER Unavailable Unavailable Fons, M Paulina MUD MIXER HELPER Unavailable Unavailable Fons, M Paulina MUD MIXER HELPER Unavailable Unavailable Fons, M Paulina MUD MIXER HELPER Unavailable Unavailable Fons, M Paulina MUD MIXER HELPER Unavailable Unavailable Ilan Cunningham MD Unavailable Unavailable [...] is protected by Article 27-F of the [facility] Public Health law. If you continue you may have access to information: Regarding HIV / AIDS; Provided by facilities licensed or operated by the [facility] Office of Mental Health; or Provided by the [facility] Office for People With Developmental Disabilities. If such information is present, then the following [facility] mandated warning applies: This information has [...] law may result in a fine or group home sentence or both. A general authorization for the release of medical or other information is NOT sufficient authorization for further disc losure. Allergies and Adverse Reactions Type Description Substance Reaction Status Data Source(s ) Drug Allergy Drug Allergy NKDA MEDENT ([facility]) Family History Family Member Name Family Member Gender Family Member Status Date o f Status Description Data Source(s) Unknown Male Problem MEDENT ([facility]) Encounters Encounter Providers Location Date Indications Data Source(s ) Outpatient Attender: Paulina FITZGERALD.ALEX-CHANG 1 12:00:00 AM EDT - 02/07/2021 11:48:26 AM EDT [facility] Unknown [address] [facility] [address] 02/01/2021 12:00:00 AM EDT eCW1 ([facility]) Outpatient [address] [facility] [address] 12/07/2020 12:00:00 AM EDT eCW1 ([facility]) Outpatient Attender: Gianfranco Cunningham MD Main Office 11/14/2020 01:30:00 PM EDT PRICE ([facility]) Outpatient Attender: Paulina DOWNING-SJP.ALEX 1 08:14:18 AM EDT - 09/13/2020 09:06:25 AM EDT [facility] Outpatient [address] [facility] [address] 03/01/2020 12:00:00 AM EDT eCW1 ([facility]) Outpatient Attender: Paulina FITZGERALD.ALEX-SJP.ALEX 0 12:00:00 AM EDT - 02/25/2020 08:47:15 AM EDT [facility] Immunizations Vaccine Date Status Description Data Source(s) VARICELLA-ZOSTER GE/AS01B/PF 10/20/2020 12:00:00 AM EDT completed [facility] influenza, recombinant, quadrIvalent,injectable, prese rvative free 03/01/2020 03:56:00 PM EDT completed eCW1 ([facility]) influenza, recombinant, quadrIvalent,injectable, prese rvative free 03/01/2020 03:56:00 PM EDT completed eCW1 ([facility]) influenza, recombinant, quadrIvalent,injectable, prese rvative free 03/01/2020 03:56:00 PM EDT completed eCW1 ([facility]) Medications Medication Brand Name Start Date Product Form Dose Route Admi nistrative Instructions Pharmacy Instructions Status Indications Reaction Description Data Source(s) 120 mg 01/06/2021 12:00:00 AM EDT tablet extended release 24 hr 30 TAKE ONE TABLET BY MOUTH EVERY DAY TAKE ONE TABLET BY MOUTH EVERY DAY SOLD: 01/06/2021 [facility] cilostazol 50 MG Oral Tablet Cilostazol 11/14/2020 12:00:00 AM EDT ORAL completed [facility] ([facility] 24 HR Isosorbide Mononitrate 120 MG Exte nded Release Oral Tablet isosorbide mononitrate (IMDUR) 120 MG 24 hr tablet isosorbide mononitrate (IMDUR) 120 MG 24 hr tablet 09/07/2020 12:00:00 AM EDT aborted TAKE ONE TABLET BY MOUTH DAILY [facility] 12 HR ranolazine 1000 MG Extended Releas e Oral Tablet ranolazine (RANEXA) 1000 MG SR tablet ranolazine (RANEXA) 1000 MG SR tablet 05/31/2020 12:00:00 AM EST active TAKE ONE TABLET BY MOUTH TWO TIMES A DAY [facility] Amlodipine 2.5 MG Oral Tablet amLODIPine (NORVASC) 2.5 MG tablet amLODIPine (NORVASC) 2.5 MG tablet 04/06/2020 12:00:00 AM EST active TAKE ONE TABLET BY MOUTH DAILY [facility] Rosuvastatin calcium 20 MG Oral Tablet rosuvastatin (C RESTOR) 20 MG tablet rosuvastatin (CRESTOR) 20 MG tablet 02/25/2020 12:00:00 AM EDT 20 mg Oral active Take 1 tablet (20 mg total) by m outh daily [facility] 1,000 mg 08/14/2019 12:00:00 AM EDT tablet extended release 12 hr 28 TAKE ONE TABLET BY MOUTH TWICE A DAY TAKE ONE TABLET BY MOUTH TWICE A DAY SOLD: 01/30/2020 [facility] Cholecalciferol 400 UNT Oral Tablet chol ecalciferol (VITAMIN D3) 400 units tablet cholecalciferol (VITAMIN D3) 400 units tablet aborted VITAMIN D3 [address] [facility] Metoprolol Tartrate 25 MG Oral Tablet me toprolol tartrate (LOPRESSOR) 25 MG tablet metoprolol tartrate (LOPRESSOR) 25 MG tablet 50 mg Ora l aborted Take 50 mg by mouth 2 (two) times a day [facility] Insurance Providers Payer name Policy type / Coverage type Policy ID Covered constitution party ID Covered constitution party's relationship to montalvo Policy [place] Plan Information MEDICARE [id number] Kathy [id number] MEDICARE [id number] xxxxxxxxxxx [id number] [facility] [id number] Kathy [id number] [facility] [id number] xxxxxxxx [id number] ANSI-Medicare Part B [id number] MEDICARE PI PI [facility] PI PI MEDICARE [id number] SP [id number] A ANSMedicare Part [id number] ANSI-Commercial [id number] [employer] [id number] SP [id number] [employer] Part B [id number] Self [id number] Medicare [place] Medicare Primary [id number] Self [id number] MEDICARE [id number] SP [id number] [employer] [id number] SP [id number] [facility] [id number] SP [id number] [facility] [id number] SP [id number] ANSI-Commercial [id number] Problems, Conditions, and Diagnoses Code Display Name Description Problem Type Effective Dates Data Source(s) M79.605 Pain in left leg Pain in left leg Diagnosis 02/07/2021 10 :46:[address] [facility] M79.604 Pain in right leg Pain in right leg Diagnosis 02/07 10:46:[address] 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 E78.00 Pure hypercholesterolemia, unspecified P ure hypercholesterolemia, unspecified Diagnosis 02/07/2021 10:46:[address] [facility] I10 Essential (primary) hypertension Essential (primary) h ypertension Diagnosis 02/07/2021 10:46:[address] [facility] 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), unspecified, with other forms of angina pectoris Atherosclerosis of coronary artery bypas Diagnosis 02/07/2021 10:46:42 AM EDT [facility] [id number] Coronary arteriosclerosis Coronary arteriosclerosis Pr oblem 11/11/2020 12:00:00 AM EDT [facility] ([facility]) [id number] Pure hypercholesterolemia Pure hypercholesterolemia Pr oblem 11/11/2020 12:00:00 AM EDT [facility] ([facility]) [id number] Essential hypertension Essential hypertension Problem 11/11/2020 12:00:00 AM EDT [facility] ([facility]) [id number] Acute myocardial infarction Acute myocardial infarctio n Problem 11/11/2020 12:00:00 AM EDT [facility] ([facility]) [id number] Benign prostatic hyperplasia without out flow obstruction Benign prostatic hyperplasia without outflow obstruction Problem 01/2021 12:00:00 AM EDT [facility] ([facility]) Surgeries/Procedures Procedure Description Date Indications Data Source(s) ECG ROUTINE ECG W/LEAST 12 LDS W/I&R <td>POCT AMB EKG</td><td>Routine</td><td>09/13/2020 9:23 AM EDT</td><td> Atherosclerosis of coronary artery bypass graft of pra[place] heart with stable angina pectoris</td><td> </td> 09/13/2020 09:23:00 AM EDT Atherosclerosis of coronary artery bypas s graft of prairie band heart with stable angina pectoris [facility] Atherosclerosis of coronary artery bypas s graft of [place] band heart with stable angina pectoris Immunization: Flublok Quadrivalent (18 years & older) 0.5mL IM (Influenza) 03/01/2020 12:00:00 AM EDT eCW1 ([facility]) Results No Information Social History Code Duration Value Status Description Data Source(s ) Smoking 12/15/2020 12:00:00 AM EDT Patient is a former smoker completed Patient is a former smoker [facility] ([facility]) Alcohol intake 09/13/2020 12:00:00 AM EDT Ex-drinker (finding) comp leted Ex- drinker (finding) [facility] Vital Signs ID Date Data Source [...] k g/m2 [facility] ([facility]) Body weight 154.8 [lb_av] 154.8 [lb_av] eCW1 ([facility]) Body height [in_i] W1 ([facility]) Body mass index (BMI) [Ratio] 25.76 kg/m2 25.76 kg/m2 eCW1 ([facility]) Heart rate 65 /min 65 /min eCW1 ([facility]) Respiratory rate 18 /min 18 /min eCW1 ([facility]) Body temperature 97.2 [degF] 97.2 [degF] eCW1 ( [facility]) Systolic blood pressure 140 mm[Hg] 140 mm[Hg] e CW1 ([facility]) Diastolic blood pressure 70 mm[Hg] 70 mm[Hg] eCW1 ([facility]) Diastolic blood pressure 80 mm[Hg] 80 mm[Hg] [...] Systolic blood pressure 144 mm[Hg] 144 mm[Hg] [facility] Diastolic blood pressure 72 mm[Hg] 72 mm[Hg] [facility] Heart rate 59 /min 59 /min [facility] Respiratory rate 18 /min 18 /min [facility] Body weight 70.[address] [facility] Body mass index (BMI) [Ratio] 25.08 kg/m2 25.08 kg/m2 [facility] Oxygen saturation in Arterial blood by Pulse oximetry 97 % 97 % [facility] Heart rate 58 /min 58 /min eCW1 ([facility]) Respiratory rate 18 /min 18 /min eCW1 ([facility]) Body temperature 97.5 [degF] 97.5 [degF] eCW1 ( [facility]) Systolic blood pressure 124 mm[Hg] 124 mm[Hg] e CW1 ([facility]) Diastolic blood pressure 60 mm[Hg] 60 mm[Hg] eCW1 ([facility]) Body weight 155.8 [lb_av] 155.8 [lb_av] eCW1 ([facility]) Body height [in_i] eCW1 ([facility]) Body mass index (BMI) [Ratio] 25.92 kg/m2 25.92 kg/m2 eC1 ([facility]) Patient Treatment Plan of Care Planned Activity Planned Date Details Description Data Source (s) 24 HR Isosorbide Mononitrate 120 MG Extended Release O ral Tablet 09/07/2020 12:00:00 AM EDT [facility] 12 HR ranolazine 1000 MG Extended Release Oral Tablet 05/31/2020 12:00:00 AM EST [facility] Amlodipine 2.5 MG Oral Tablet 04/06/2020 12:00:[address] [facility] Rosuvastatin calcium 20 MG Oral Tablet 02/25/2020 12:00:[address] [facility] Cholecalciferol [address] [facility] Metoprolol Tartrate [address] [facility]
[2021-02-25 23:00] VITALS: BP 146/66
== END 2021-02-25 23:12 | disposition short-term general hospital (02) ==
LOC: M ED 14:34
DX: R07.9 Chest pain, unspecified (principal); R53.1 Weakness; I25.2 Old myocardial infarction; I25.10 Atherosclerotic heart disease of native coronary artery without angina pectoris; E78.5 Hyperlipidemia, unspecified; Z95.5 Presence of coronary angioplasty implant and graft; Z79.899 Other long term (current) drug therapy; Z79.82 Long term (current) use of aspirin

== ENCOUNTER → 2021-09-07 | Outpatient (CLI) | payer MEDICARE, OTHER ==
[2021-09-07 13:41] LABS: BASO # 0.1 10^3/uL (0.0-0.2); BASO % 0.9 % (0.0-1.0); EOS # 0.1 10^3/uL (0.0-0.5); EOS % 2.1 % (0.0-3.0); HEMATOCRIT 44.9 % (42.0-52.0); HEMOGLOBIN 14.6 g/dl (13.5-17.5); LYMPH # 1.7 10^3/uL (1.5-5.0); LYMPH % 24.9 % (24.0-44.0); MEAN CORPUSCULAR HEMOGLOBIN 31.2 pg (27.0-33.0); MEAN CORPUSCULAR HGB CONC 32.5 g/dl (32.0-36.5); MEAN CORPUSCULAR VOLUME 95.9 fl (80.0-96.0); MONO # 0.7 10^3/uL (0.0-0.8); MONO % 10.9 % (2.0-8.0); NEUTROPHILS # 4.1 10^3/uL (1.5-8.5); NEUTROPHILS % 60.8 % (36.0-66.0); PLATELET COUNT, AUTOMATED 220 10^3/uL (150-450); RED BLOOD COUNT 4.68 10^6/uL (4.30-6.10); WHITE BLOOD COUNT 6.7 10^3/uL (4.0-10.0)
[2021-09-07 14:02] LABS: ALBUMIN 3.6 GM/DL (3.2-5.2); ALT/SGPT 18 U/L (12-78); BILIRUBIN,TOTAL 0.4 MG/DL (0.2-1.0); BLOOD UREA NITROGEN 22 MG/DL (7-18); CALCIUM LEVEL 9.7 MG/DL (8.8-10.2); CARBON DIOXIDE LEVEL 30 MEQ/L (21-32); CHLORIDE LEVEL 104 MEQ/L (98-107); CHOLESTEROL LEVEL 198 MG/DL (<200); CHOLESTEROL RISK RATIO 3.473 (<5); CREATININE FOR GFR 1.08 MG/DL (0.70-1.30); GLOMERULAR FILTRATION RATE > 60.0 (>42); GLUCOSE, FASTING 118 MG/DL (70-100); HDL CHOLESTEROL 57 MG/DL (>40); LDL CHOLESTEROL 117 MG/DL (<100); MAGNESIUM LEVEL 2.4 MG/DL (1.8-2.4); NON-HDL-C 141 MG/DL; SODIUM LEVEL 139 MEQ/L (136-145); TOTAL PROTEIN 6.8 GM/DL (6.4-8.2); TRIGLYCERIDES LEVEL 121 MG/DL (<150)
[2021-09-07 20:15] LABS: HEMOGLOBIN A1c 5.4 %
== END ==
LOC: M PLALAB 09:26
PROVIDERS: ATTEND Internal Medicine
DX: I10 Essential (primary) hypertension (principal); E78.00 Pure hypercholesterolemia, unspecified; R73.01 Impaired fasting glucose; N40.0 Benign prostatic hyperplasia without lower urinary tract symptoms; Z12.5 Encounter for screening for malignant neoplasm of prostate
CPT/HCPCS: 36415; 80053; 80061; 83036; 83735; 85025; G0103

== ENCOUNTER → 2022-09-18 | Outpatient (CLI) | payer MEDICARE, OTHER ==
[~2022-09-18] MED LIST changes: -ISOS20TA PO; +ISOS20TA53 PO
[2022-09-18 10:25] LABS: HEMATOCRIT 44.1 % (42.0-52.0); HEMOGLOBIN 14.4 g/dl (13.5-17.5); MEAN CORPUSCULAR HEMOGLOBIN 31.2 pg (27.0-33.0); MEAN CORPUSCULAR HGB CONC 32.7 g/dl (32.0-36.5); MEAN CORPUSCULAR VOLUME 95.5 fl (80.0-96.0); PLATELET COUNT, AUTOMATED 195 10^3/uL (150-450); RED BLOOD COUNT 4.62 10^6/uL (4.30-6.10)
[2022-09-18 10:42] LABS: HEMOGLOBIN A1c 5.7 % (4.0-6.0)
[2022-09-18 10:58] LABS: TOTAL 25(OH) VITAMIN D 32.7 NG/ML (20.0-100.0); VITAMIN B12 LEVEL 166 PG/ML (211-911)
[2022-09-18 10:59] LABS: ALBUMIN 3.7 G/DL (3.2-5.2); ALKALINE PHOSPHATASE 73 U/L (46-116); ALT/SGPT 16 U/L (7.0-40); AST/SGOT 14 U/L (<34); BILIRUBIN,TOTAL 0.4 MG/DL (0.3-1.2); BLOOD UREA NITROGEN 20 MG/DL (9-23); CALCIUM LEVEL 9.3 MG/DL (8.3-10.6); CARBON DIOXIDE LEVEL 29 MMOL/L (20-31); CHLORIDE LEVEL 104 MMOL/L (98-107); CHOLESTEROL LEVEL 156 MG/DL (<200); CREATININE FOR GFR 1.27 MG/DL (0.70-1.30); GLOMERULAR FILTRATION RATE 58.7 (>42); GLUCOSE, FASTING 99 MG/DL (74-106); HDL CHOLESTEROL 62.3 MG/DL (>40); LDL CHOLESTEROL 64.9 MG/DL (<100); NON-HDL-C 93.7 MG/DL; POTASSIUM SERUM 4.9 MMOL/L (3.5-5.1); SODIUM LEVEL 139 MMOL/L (136-145); TOTAL PROTEIN 6.6 G/DL (5.7-8.2); TRIGLYCERIDES LEVEL 144 MG/DL (<150)
[2022-09-18 11:00] LABS: THYROID STIMULATING HORMONE 2.243 uIU/ML (0.55-4.78)
[2022-09-18 11:01] LABS: FREE T4 0.88 NG/DL (0.89-1.76)
[2022-09-18 11:25] LABS: CREATININE, URINE 120.6 MG/DL; MAU/CREAT RATIO 64.6 MCG/MG (0.0-30.0)
[2022-09-18 11:55] LABS: C REACTIVE PROTEIN QUANTITATIV < 0.40 MG/DL (<1.0)
[2022-09-19 15:10] LABS: INSULIN LEVEL 11.1 uIU/mL (2.6-24.9)
== END ==
LOC: M LAB 08:42
PROVIDERS: ATTEND Internal Medicine Hematology
DX: I25.119 Atherosclerotic heart disease of native coronary artery with unspecified angina pectoris (principal); N40.0 Benign prostatic hyperplasia without lower urinary tract symptoms; Z79.899 Other long term (current) drug therapy
CPT/HCPCS: 36415; 80053; 80061; 82043; 82306; 82607; 83036; 83525; 83695; 84439; 84443; 85027; 86140; G0103

== ENCOUNTER → 2023-09-25 | Outpatient (CLI) | payer MEDICARE, OTHER ==
[~2023-09-25] MED LIST changes: -ASPI-161 PO; +ASPI-615 PO; +CLOP75TA99 PO; +COQ150CH PO; +FINA-48 PO; +FURO20TA2 PO; +ISOS1TAB36 PO; +PROT1TAB2 PO; +RAMI10CA64 PO; -RAMI1CAP24 PO; -RAMI1CAP26 PO; +RAMI5CAP60 PO; +RANO10002 PO; +VITA100093 PO
[2023-09-25 10:59] LABS: BASO # 0.1 10^3/uL (0.0-0.2); EOS # 0.1 10^3/uL (0.0-0.5); EOS % 1.8 % (0.0-3.0); HEMATOCRIT 38.3 % (42.0-52.0); HEMOGLOBIN 12.5 g/dl (13.5-17.5); LYMPH # 1.6 10^3/uL (1.5-5.0); LYMPH % 25.8 % (24.0-44.0); MEAN CORPUSCULAR HEMOGLOBIN 31.2 pg (27.0-33.0); MEAN CORPUSCULAR HGB CONC 32.6 g/dl (32.0-36.5); MEAN CORPUSCULAR VOLUME 95.5 fl (80.0-96.0); MONO # 0.6 10^3/uL (0.0-0.8); MONO % 10.3 % (2.0-8.0); NEUTROPHILS # 3.8 10^3/uL (1.5-8.5); NEUTROPHILS % 60.8 % (36.0-66.0); PLATELET COUNT, AUTOMATED 220 10^3/uL (150-450); RED BLOOD COUNT 4.01 10^6/uL (4.30-6.10); WHITE BLOOD COUNT 6.2 10^3/uL (4.0-10.0)
[2023-09-25 11:26] LABS: C REACTIVE PROTEIN QUANTITATIV < 0.40 MG/DL (<1.0); CREATININE, URINE 182.4 MG/DL; MAU/CREAT RATIO 8.2 MCG/MG (0.0-30.0)
[2023-09-25 11:28] LABS: ALBUMIN 3.7 G/DL (3.2-5.2); ALKALINE PHOSPHATASE 75 U/L (46-116); ALT/SGPT 19 U/L (7.0-40); AST/SGOT < 8 U/L (<34); BILIRUBIN,TOTAL 0.4 MG/DL (0.3-1.2); BLOOD UREA NITROGEN 30 MG/DL (9-23); CARBON DIOXIDE LEVEL 32 MMOL/L (20-31); CHLORIDE LEVEL 104 MMOL/L (98-107); CHOLESTEROL LEVEL 162 MG/DL (<200); CHOLESTEROL RISK RATIO 2.91 (<5); CREATININE FOR GFR 1.65 MG/DL (0.70-1.30); GLOMERULAR FILTRATION RATE 43.3 (>42); GLUCOSE, FASTING 94 MG/DL (74-106); HDL CHOLESTEROL 55.6 MG/DL (>40); LDL CHOLESTEROL 80.2 MG/DL (<100); NON-HDL-C 106.4 MG/DL; POTASSIUM SERUM 4.3 MMOL/L (3.5-5.1); SODIUM LEVEL 140 MMOL/L (136-145); THYROID STIMULATING HORMONE 1.629 uIU/ML (0.55-4.78); TOTAL PROTEIN 6.6 G/DL (5.7-8.2); TRIGLYCERIDES LEVEL 131 MG/DL (<150)
[2023-09-25 11:29] LABS: FREE T4 0.88 NG/DL (0.89-1.76); TOTAL 25(OH) VITAMIN D 63.7 NG/ML (20.0-100.0); VITAMIN B12 LEVEL 446 PG/ML (211-911)
[2023-09-25 11:32] LABS: HEMOGLOBIN A1c 5.6 % (4.0-6.0)
== END ==
LOC: M WUC 08:51
PROVIDERS: ATTEND Internal Medicine Hematology
DX: I25.10 Atherosclerotic heart disease of native coronary artery without angina pectoris (principal); Z12.5 Encounter for screening for malignant neoplasm of prostate; I10 Essential (primary) hypertension; R73.01 Impaired fasting glucose; N40.0 Benign prostatic hyperplasia without lower urinary tract symptoms; K21.9 Gastro-esophageal reflux disease without esophagitis; Z79.899 Other long term (current) drug therapy
CPT/HCPCS: 36415; 80053; 80061; 82043; 82306; 82607; 83036; 83525; 84439; 84443; 85025; 86140; G0103

== ENCOUNTER 2023-10-09 06:07 | Day surgery (SDC) | payer MEDICARE, OTHER ==
[~2023-10-09] VITALS: Ht 165.1 cm; Wt 65.9 kg
[~2023-10-09 06:07] MED LIST changes: +ESOM1CAP20 PO; -ESOM1CAP5 PO
[2023-10-09] MEDS ORDERED: MIDAZOLAM INJ 2MG/2ML VIAL As Ordered ONE (06:59)
[2023-10-09] MEDS ORDERED: fentaNYL 100 MCG/2 ML INJECTION As Ordered ONE (07:01)
[2023-10-09] MEDS: mitoMYcin 0.2 MG/VIAL KIT FOR OPHTHALMIC USE As Ordered ONE (07:50)
[2023-10-09] MEDS: LIDOCAINE 2% W/EPINEPHRINE 20ML VIAL **PRES FREE As Ordered ONE (07:50)
[2023-10-09] MEDS: LIDOCAINE 3.5 % 1ML OPHTH TOPICAL GEL OU ONE (07:51)
[2023-10-09] MEDS: TOBRADEX OPHTH OINT 3.5 GM As Ordered ONE (07:57)
[2023-10-09 08:05] VITALS: BP 157/69; TEMP 97.2; O2SAT 97
== END 2023-10-09 08:23 | disposition home or self-care (01) ==
LOC: M SDC 06:07
PROVIDERS: ATTEND Ophthalmology
DX: H11.002 Unspecified pterygium of left eye (principal); I25.718 Atherosclerosis of autologous vein coronary artery bypass graft(s) with other forms of angina pectoris; I10 Essential (primary) hypertension; I25.2 Old myocardial infarction; E78.00 Pure hypercholesterolemia, unspecified; R73.03 Prediabetes; Z79.899 Other long term (current) drug therapy; Z79.82 Long term (current) use of aspirin
CPT/HCPCS: 65426; 88304; J2250; J3010; J7315; Q4205

== ENCOUNTER 2023-11-27 10:15 | Day surgery (SDC) | payer MEDICARE, OTHER ==
[~2023-11-27] VITALS: Ht 165.1 cm; Wt 66.1 kg
[~2023-11-27 10:15] MED LIST changes: +PHENYLEPHRINE 10% OPHTH SOL 5ML OD PRN
[2023-11-27] MEDS ORDERED: fentaNYL 100 MCG/2 ML INJECTION As Ordered ONE (11:37)
[2023-11-27] MEDS ORDERED: MIDAZOLAM INJ 2MG/2ML VIAL As Ordered ONE (11:37)
[2023-11-27] MEDS: LIDOCAINE 3.5 % 1ML OPHTH TOPICAL GEL OU ONE (11:59)
[2023-11-27] MEDS: ATROPINE SULFATE 1% OPHTH SOLN 2ML BTL OD SCH (11:59)
[2023-11-27] MEDS: PHENYLEPHRINE 2.5% OPHTH SOL 2ML OD SCH (11:59)
[2023-11-27] MEDS: TROPICAMIDE 1% OPHTH SOLN 15ML OD SCH (11:59)
[2023-11-27] MEDS: OFLOXACIN 0.3 % (OCUFLOX) OPTH SOL 5ML OD ONE (11:59)
[2023-11-27] MEDS: CEFUROXIME 1MG/0.1ML INTRACAMERAL INJ As Ordered ONE (12:04)
[2023-11-27] MEDS: LIDOCAINE 1% SDV 5ML VIAL As Ordered ONE (12:04)
[2023-11-27] MEDS: BSS IRRIG/VANCO(10MG)/TOBRA(5MG)/EPINEPH(1:1000-0.5CC)500ML BAG-ORONLY As Ordered ONE (12:05)
[2023-11-27] MEDS: CARBACHOL 0.01% OPHTH SOLN 1.5ML VIAL As Ordered ONE (12:18)
[2023-11-27 12:28] VITALS: BP 130/60; TEMP 98.6; O2SAT 97
[2023-11-27] MEDS ORDERED: DUOVISC (0.50ML VISCOAT/0.85ML PROVISC) OPHTH KIT As Ordered ONE (12:36)
== END 2023-11-27 12:45 | disposition home or self-care (01) ==
LOC: M SDC 10:15
PROVIDERS: ATTEND Ophthalmology
DX: H25.11 Age-related nuclear cataract, right eye (principal); I25.10 Atherosclerotic heart disease of native coronary artery without angina pectoris; I25.2 Old myocardial infarction; I10 Essential (primary) hypertension; E78.00 Pure hypercholesterolemia, unspecified; K21.9 Gastro-esophageal reflux disease without esophagitis; Z79.899 Other long term (current) drug therapy; Z79.02 Long term (current) use of antithrombotics/antiplatelets; Z95.1 Presence of aortocoronary bypass graft; Z95.5 Presence of coronary angioplasty implant and graft; Z79.82 Long term (current) use of aspirin
CPT/HCPCS: 66984; J0697; J2250; J3010; V2632

== ENCOUNTER 2023-12-11 09:41 | Day surgery (SDC) | payer MEDICARE, OTHER ==
[~2023-12-11] VITALS: Ht 167.6 cm; Wt 66.7 kg
[~2023-12-11 09:41] MED LIST changes: +MIDAZOLAM INJ 2MG/2ML VIAL As Ordered ONE; -PHENYLEPHRINE 10% OPHTH SOL 5ML OD PRN; +PHENYLEPHRINE 10% OPHTH SOL 5ML OS PRN; +fentaNYL 100 MCG/2 ML INJECTION As Ordered ONE
[2023-12-11] MEDS ORDERED: ONDANSETRON 4MG 2ML VIAL IV PRN (10:25)
[2023-12-11] MEDS ORDERED: fentaNYL 100 MCG/2 ML INJECTION IV PRN (10:25)
[2023-12-11] MEDS: OFLOXACIN 0.3 % (OCUFLOX) OPTH SOL 5ML OS ONE (10:45)
[2023-12-11] MEDS: ATROPINE SULFATE 1% OPHTH SOLN 2ML BTL OS SCH (10:51)
[2023-12-11] MEDS: PHENYLEPHRINE 2.5% OPHTH SOL 2ML OS SCH (10:51)
[2023-12-11] MEDS: TROPICAMIDE 1% OPHTH SOLN 15ML OS SCH (10:51)
[2023-12-11] MEDS: LIDOCAINE 3.5 % 1ML OPHTH TOPICAL GEL OU ONE (10:51)
[2023-12-11] MEDS: BSS IRRIG/VANCO(10MG)/TOBRA(5MG)/EPINEPH(1:1000-0.5CC)500ML BAG-ORONLY As Ordered ONE (11:35)
[2023-12-11] MEDS: CEFUROXIME 1MG/0.1ML INTRACAMERAL INJ As Ordered ONE (11:35)
[2023-12-11] MEDS: LIDOCAINE 1% SDV 5ML VIAL As Ordered ONE (11:35)
[2023-12-11 11:41] VITALS: BP 149/65; TEMP 97.4; O2SAT 96
== END 2023-12-11 11:52 | disposition home or self-care (01) ==
LOC: M SDC 09:41
PROVIDERS: ATTEND Ophthalmology
DX: H25.12 Age-related nuclear cataract, left eye (principal); I10 Essential (primary) hypertension; I25.10 Atherosclerotic heart disease of native coronary artery without angina pectoris; I25.2 Old myocardial infarction; E78.00 Pure hypercholesterolemia, unspecified; Z79.02 Long term (current) use of antithrombotics/antiplatelets; Z79.82 Long term (current) use of aspirin; Z79.899 Other long term (current) drug therapy; Z95.5 Presence of coronary angioplasty implant and graft; Z95.1 Presence of aortocoronary bypass graft; K21.9 Gastro-esophageal reflux disease without esophagitis
CPT/HCPCS: 66984; J0697; J2250; J3010; V2632

== ENCOUNTER → 2024-11-05 | Outpatient (CLI) | payer MEDICARE, OTHER ==
[~2024-11-05] MED LIST changes: -ISOS20TA53 PO; +ISOS20TA72 PO; -MIDAZOLAM INJ 2MG/2ML VIAL As Ordered ONE; -PHENYLEPHRINE 10% OPHTH SOL 5ML OS PRN; -fentaNYL 100 MCG/2 ML INJECTION As Ordered ONE
[2024-11-05 10:26] LABS: BASO # 0.0 10^3/uL (0.0-0.2); BASO % 0.6 % (0.0-1.0); EOS # 0.2 10^3/uL (0.0-0.5); EOS % 3.0 % (0.0-3.0); LYMPH # 1.3 10^3/uL (1.5-5.0); LYMPH % 20.0 % (24.0-44.0); MONO # 0.7 10^3/uL (0.0-0.8); MONO % 10.4 % (2.0-8.0); NEUTROPHILS # 4.4 10^3/uL (1.5-8.5); NEUTROPHILS % 65.9 % (36.0-66.0); PLATELET COUNT, AUTOMATED 205 10^3/uL (150-450)
[2024-11-05 10:52] LABS: CREATININE, URINE 165.4 MG/DL
[2024-11-05 10:52] LABS: ESTIMATED AVERAGE GLUCOSE 111.0 MG/DL (60-110)
[2024-11-05 10:53] LABS: MALB URINE SIEMENS 12.0 MG/L; MAU/CREAT RATIO 7.2 MCG/MG (0.0-30.0)
[2024-11-05 11:07] LABS: ALT/SGPT 20.0 U/L (7.0-40); AST/SGOT 13.0 U/L (<34); CALCIUM LEVEL 8.9 MG/DL (8.3-10.6); CARBON DIOXIDE LEVEL 30.0 MMOL/L (20-31); CHLORIDE LEVEL 101.0 MMOL/L (98-107); CHOLESTEROL LEVEL 168.0 MG/DL (<200); CHOLESTEROL RISK RATIO 3.26 (<5); CREATININE FOR GFR 1.7 MG/DL (0.70-1.30); GLOMERULAR FILTRATION RATE 40.8 (>42); LDL CHOLESTEROL 91.3 MG/DL (<100); NON-HDL-C 116.5 MG/DL; POTASSIUM SERUM 5.0 MMOL/L (3.5-5.1); SODIUM LEVEL 140.0 MMOL/L (136-145); TRIGLYCERIDES LEVEL 126.0 MG/DL (<150)
[2024-11-05 11:09] LABS: FREE T4 0.94 NG/DL (0.89-1.76)
== END ==
LOC: M LAB 08:47
PROVIDERS: ATTEND Student in an Organized Health Care Education/Training Program
DX: Z00.00 Encounter for general adult medical examination without abnormal findings (principal); I25.119 Atherosclerotic heart disease of native coronary artery with unspecified angina pectoris; Z79.899 Other long term (current) drug therapy